=== PATIENT | male | born 1975 | race Caucasian/White ===

== ENCOUNTER 2016-04-12 12:52 | Inpatient (IN) | payer OTHER ==
[2016-04-12 14:24] VITALS: BMI 25.0
--- NOTE | 2016-04-12 16:30 | HP ---
CIWA Score - CIWA Score Nausea/Vomitin-Mild Nausea/No Vomiting Muscle Tremors: 4-Moderate,w/Arms Extend Anxiety: 4-Mod. Anxious/Guarded Agitation: 1-Slight > Activity Paroxysmal Sweats: 1-Minimal Palms Moist Orientation: 0-Oriented Tacttile Disturbances: 0-None Auditory Disturbances: 3-Moderate Harsh/Frighten Visual Disturbances: 0-None Headache: 3-Moderate CIWA-Ar Total Score: 17 Admission ROS S - HPI Chief Complaint: withdrawal sx Allergies/Adverse Reactions: Allergies Allergy/AdvReac Type Severity Reaction Status Date / Time No Known Drug Allergies Allergy Verified 04/12/16 16:24 mushrooms Allergy Severe Hives Uncoded 04/12/16 16:24 History of Present Illness: 40 years old male with long history of alcohol nicotine dependence, has constipation, asthma, and auditory halluciation, longest sobriety 4 years, is admitted to detox Exam Limitations: No Limitations - Ebola screening Have you traveled outside of the country in the last 21 days: No Have you had contact with anyone from an Ebola affected area: No Have you been sick,other than usual withdrawal symptoms: No Do you have a fever: No - Review of Systems Constitutional: Chills, Loss of Appetite, Changes in sleep, Unintentional Wgt. Loss EENT: reports: Throat Pain (sore throat) Respiratory: reports: SOB with Exertion, Productive cough (green) Cardiac: reports: Palpitations GI: reports: Constipated, Nausea, Poor Appetite, Poor Fluid Intake, Abdominal cramping : reports: No Symptoms Reported Musculoskeletal: reports: Back Pain, Joint Pain, Muscle Pain, Neck Pain Integumentary: reports: No Symptoms Reported Neuro: reports: Tremors Endocrine: reports: No Symptoms Reported Hematology: reports: No Symptoms Reported Psychiatric: reports: Judgement Intact, Orientated x3, Anxious, Depressed Other Systems: Reviewed and Negative Patient History - Patient Medical History Hx Anemia: No Hx Asthma: Yes Hx Chronic Obstructive Pulmonary Disease (COPD): No Hx Cancer: No Hx Cardiac Disorders: No Hx Congestive Heart Failure: No Hx Hypertension: No Hx Hypercholesterolemia: No Hx Pacemaker: No HX Cerebrovascular Accident: No Hx Seizures: No Hx Dementia: No Hx Diabetes: No Hx Gastrointestinal Disorders: No Hx Liver Disease: No Hx Genitourinary Disorders: No Hx Sexually Transmitted Disorders: No Hx Renal Disease (ESRD): No Hx Thyroid Disease: No Hx Human Immunodeficiency Virus (HIV): No (negative few months ago) Hx Hepatitis C: No (negative few months ago) Hx Depression: No Hx Suicide Attempt: No (denies) Hx Bipolar Disorder: No Hx Schizophrenia: Yes - Patient Surgical History Past Surgical History: No Hx Neurologic Surgery: No Hx Cataract Extraction: No Hx Cardiac Surgery: No Hx Lung Surgery: No Hx Breast Surgery: No Hx Breast Biopsy: No Hx Abdominal Surgery: Yes (umbilical hernia repaired age 4) Hx Appendectomy: No Hx Cholecystectomy: No Hx Genitourinary Surgery: No Hx Orthopedic Surgery: No Anesthesia Reaction: No - PPD History Previous Implant?: Yes Documented Results: Negative w/proof Implanted On Prior [facility] Admission?: Yes Date: 12/27/15 Results: 0 mm PPD to be Administered?: No - Smoking Cessation Smoking history: Current every day smoker Have you smoked in the past 12 months: Yes Aproximately how many cigarettes per day: 4 Cigars Per Day: 0 Hx Chewing Tobacco Use: No Initiated information on smoking cessation: Yes 'Breaking Loose' booklet given: 04/12/16 - Substance & Tx. History Hx Alcohol Use: Yes Hx Substance Use: Yes Substance Use Type: Alcohol, Cocaine, Marijuana Hx Substance Use Treatment: Yes - Substances Abused Alcohol Route: Oral Frequency: Daily Amount used: 16 oz beer x4 6 pack Age of first use: 14 Date of Last Use: 04/12/16 Alcohol-beer/rum Route: Oral Frequency: Daily Amount used: 1 case/1 pt. Age of first use: 14 Date of Last Use: 04/12/16 Family Disease History - Family Disease History Family Disease History: Respiratory: Mother (history of alcoholism), Other: Father ( 1980) Admission Physical Exam S - Vital Signs Vital Signs: Vital Signs - 24 hr 04/12/16 14:22 Temperature 98.7 F Pulse Rate 96 H Respiratory 18 Rate Blood Pressure 118/75 - Physical General Appearance: Yes: Appropriately Dressed, Mild Distress, Thin, Tremorous, Irritable, Sweating, Anxious HEENTM: Yes: Hearing grossly Normal, Normal ENT Inspection, Normocephalic, Normal Voice, Other (ichy throat) Respiratory: Yes: Chest Non-Tender, Lungs Clear, Normal Breath Sounds, No Respiratory Distress, No Accessory Muscle Use, Wheezing, Expiration (ventolin nebulizer) Neck: Yes: Supple, Trachea in good position Breast: Yes: Breasts Symetrical Cardiology: Yes: Regular Rhythm, S1, S2, Tachycardia Abdominal: Yes: Non Tender, Soft, Decreased BS (colace) Genitourinary: Yes: Within Normal Limits Back: Yes: Normal Inspection Musculoskeletal: Yes: full range of Motion, Gait Steady, Back pain, Muscle Pain Extremities: Yes: Normal Inspection, Normal Range of Motion, Non-Tender, Tremors Neurological: Yes: Fully Oriented, Alert, Motor Strength 5/5, Normal Response, Depressed Affect Integumentary: Yes: Warm, Clammy Lymphatic: Yes: Within Normal Limits - Diagnostic (1) Alcohol dependence with uncomplicated withdrawal Current Visit: Yes Status: Acute (2) Asthma Current Visit: Yes Status: Acute Qualifiers: Asthma severity: mild persistent Asthma complication type: uncomplicated Qualified Code(s): J45.30 - Mild persistent asthma, uncomplicated (3) Nicotine dependence Current Visit: Yes Status: Acute Qualifiers: Nicotine product type: cigarettes Substance use status: in withdrawal Qualified Code(s): F17.213 - Nicotine dependence, cigarettes, with withdrawal (4) Weight loss Current Visit: Yes Status: Acute (5) Constipation by delayed colonic transit Current Visit: Yes Status: Acute Comment: colace (6) Auditory hallucination Current Visit: Yes Status: Suspected Comment: psychiatrist consultation Cleared for Admission [facility] - Detox or Rehab [facility] Level of Care: Medically Managed Detox Regimen/Protocol: Librium [facility] Breath Alcohol Content Breath Alcohol Content: 0 Urine Drug Screen - Results Drug Screen Negative: No Urine Drug Screen Results: THC-Marijuana, HALLIE-Cocaine, MDMA-Ecstasy
[2016-04-12] MEDS ORDERED: MAGNESIUM CITRATE 300 ML BOTTLE PO PRN (16:40)
[2016-04-12] MEDS ORDERED: P-EPHED 60MG/TRIPROLIDI 2.5MG TABLET PO PRN (16:40)
[2016-04-12] MEDS ORDERED: MENTHOL/PHENOL 1 EACH UD MM PRN (16:40)
[2016-04-12] MEDS ORDERED: MAGNESIUM HYDROX 2400MG/30ML ORAL SUSPENSION 30 ML CUP PO PRN (16:40)
[2016-04-12] MEDS ORDERED: chlordiazePOXIDE HCL 25 MG CAPSULE PO PRN (16:40)
[2016-04-12] MEDS ORDERED: NICOTINE POLACRILEX 2 MG GUM BC PRN (16:40)
[2016-04-12] MEDS ORDERED: MAG HYDROX/AL HYDROX/SIMETH 30 ML UNIT-DOSE CUP PO PRN (16:40)
[2016-04-12] MEDS ORDERED: IBUPROFEN 400 MG TABLET (FP) PO PRN (16:40)
[2016-04-12] MEDS ORDERED: hydrOXYzine PAMOATE 50 MG CAPSULE (FP) PO PRN (16:40)
[2016-04-12] MEDS ORDERED: diphenhydrAMINE HCL 50 MG CAPSULE PO PRN (16:40)
[2016-04-12] MEDS ORDERED: LOPERAMIDE HCL 2 MG CAPSULE PO PRN (16:40)
[2016-04-12] MEDS ORDERED: guaiFENesin/D-METHORPHAN HB 10 ML UNIT-DOSE CUPS PO PRN (16:40)
[2016-04-12] MEDS ORDERED: ALBUTEROL SO4 6.7 GM HFA INHALER IH PRN (16:42)
[2016-04-12] MEDS ORDERED: ALBUTEROL SO4 2.5/IPRATROPIUM 0.5 INH SOL 3 ML VIAL.NEB. NEB PRN (16:43)
[2016-04-12] MEDS: ACETAMINOPHEN 325 MG TABLET (FP) PO PRN (18:45)
[2016-04-12] MEDS: THIAMINE HCL 100 MG TABLET (FP) PO SCH (22:55)
[2016-04-12 22:58] LABS: URINE APPEARANCE CLEAR; URINE BILIRUBIN NEGATIVE (NEGATIVE); URINE BLOOD NEGATIVE (NEGATIVE); URINE COLOR DKYELLOW; URINE GLUCOSE (UA) NEGATIVE (NEGATIVE); URINE KETONE NEGATIVE (NEGATIVE); URINE LEUK ESTERASE NEGATIVE (NEGATIVE); URINE NITRITE NEGATIVE (NEGATIVE); URINE PROTEIN NEGATIVE (NEGATIVE); URINE UROBILINOGEN 2.0 E.U/dl E.U./dl (0.2-1.0)
[2016-04-12] MEDS: chlordiazePOXIDE HCL 25 MG CAPSULE PO SCH (23:53)
[2016-04-13] MEDS: chlordiazePOXIDE HCL 25 MG CAPSULE PO SCH ×4 (05:31→23:00)
[2016-04-13] MEDS: DOCUSATE SODIUM 100 MG CAPSULE (FP) PO PRN ×2 (05:34→10:46)
--- NOTE | 2016-04-13 08:03 | CONSULT ---
[facility] Psychiatric Consult - Data Date of interview: 04/13/16 Admission source: [facility] Identifying data: This is 40 years old male with psychiatroic hospitalization history, special education history, math learniong disorder history (math), iontoxicated with Alvohol, Cocaine and Nicotine Substance Abuse History: - Smoking Cessation. Smoking history: Current every day smoker. Have you smoked in the past 12 months: Yes. Aproximately how many cigarettes per day: 4. Cigars Per Day: 0. Hx Chewing Tobacco Use: No. Initiated information on smoking cessation: Yes. 'Breaking Loose' booklet given : 04/12/16. - Substance & Tx. History. Hx Alcohol Use: Yes. Hx Substance Use : Yes. Substance Use Type: Alcohol, Cocaine, Marijuana. Hx Substance Use Treatment: Yes. - Substances Abused. Alcohol. Route: Oral. Frequency: Daily. Amount used: 16 oz beer x4 6 pack. Age of first use: 14. Date of Last Use: 04/12/16. Alcohol-beer/rum. Route: Oral. Frequency: Daily. Amount used: 1 case/1 pt. Age of first use: 14. Date of Last Use: 04/12/16 Medical History: Asthma, Weight loss history, Psychiatric History: Patient reprots mathematics learning disorder, as per computer carries Schizophrenia with most recent psychiatric admission on [facility] 5 years ago, denies suicidal history, reports no medications taking prior to admission, reportsd history hearing voices when under influence of Alcohol and Cocaine, Physical/Sexual Abuse/Trauma History: Denies Additional Comment: Observation,. Detox Unit Care Protocol Mental Status Exam - Mental Status Exam Alert and Oriented to: Person Cognitive Function: Fair Patient Appearance: Unkempt Mood: Anxious, Happy Affect: Labile Patient Behavior: Cooperative Speech Pattern: Excessive Voice Loudness: Mildly Loud Thought Process: Goal Oriented Thought Disorder: Being Controlled Hallucinations: Denies Suicidal Ideation: Denies Homicidal Ideation: Denies Insight/Judgement: Fair Sleep: Difficulty falling asleep Appetite: Weight loss Muscle strength/Tone: Normal Gait/Station: Normal Additional Comments: Observation,. Detox Unit Care Protocol Psychiatric Findings - Problem List ([place] 1, 2,3) (1) Alcohol dependence with uncomplicated withdrawal Current Visit: Yes Status: Acute (2) Nicotine dependence Current Visit: Yes Status: Acute Qualifiers: Nicotine product type: cigarettes Substance use status: in withdrawal Qualified Code(s): F17.213 - Nicotine dependence, cigarettes, with withdrawal (3) Cocaine dependence Current Visit: No Status: Chronic Qualifiers: Substance use status: uncomplicated Qualified Code(s): F14.20 - Cocaine dependence, uncomplicated (4) Learning disability Current Visit: No Status: Chronic (5) Schizophrenia Current Visit: Yes Status: Acute (6) Mental retardation Current Visit: Yes Status: Acute (7) History of learning disability Current Visit: Yes Status: Acute (8) Drug-induced mood disorder Current Visit: Yes Status: Acute - Initial Treatment Plan Initial Treatment Plan: Observation,. Detox Unit Care Protocol
[2016-04-13 10:03] LABS: MCH 30.6 pg (25.7-33.7); MCHC 33.6 g/dl (32.0-35.9); MEAN CELL VOLUME 91.2 fl (80-96); MEAN PLT VOLUME 10.2 fl (7.5-11.1); PLATELET COUNT 147 K/MM3 (134-434); RDW 13.4 % (11.9-15.9); WHITE BLOOD COUNT 5.7 K/mm3 (4.0-10.0)
[2016-04-13 10:17] LABS: ALBUMIN 3.4 g/dl (3.4-5.0); ALK PHOS 47 U/L (45-117); ANION GAP 8 (8-16); BILIRUBIN,TOTAL 0.6 mg/dL (0.2-1.0); CALCIUM 8.2 mg/dL (8.5-10.1); CO2 30 mmol/L (21-32); CREATININE 1.1 mg/dL (0.7-1.3); GLUCOSE,RANDOM 98 mg/dL (74-106); SGOT/AST 18 U/L (15-37); SGPT/ALT 19 U/L (12-78); TOT PROT 6.2 g/dl (6.4-8.2)
[2016-04-13] MEDS: PRENATAL VITAMINS W/ FOLIC ACID TABLET (FP) PO SCH (10:46)
[2016-04-13] MEDS: ACETAMINOPHEN 325 MG TABLET (FP) PO PRN (10:48)
[2016-04-13] MEDS: NICOTINE 14 MG/24 HOURS TOPICAL PATCH TD SCH (11:00)
[2016-04-13] MEDS ORDERED: CYCLOBENZAPRINE HCL 10 MG TABLET (FP) PO PRN (11:04)
--- NOTE | 2016-04-13 12:21 | EKG ---
Test Reason : Blood Pressure : / mmHG Vent. Rate : 071 BPM Atrial Rate : 071 BPM P-R Int : 162 ms QRS Dur : 064 ms QT Int : 362 ms P-R-T Axes : 035 071 041 degrees QTc Int : 393 ms NORMAL SINUS RHYTHM WITH SINUS ARRHYTHMIA SEPTAL INFARCT , AGE UNDETERMINED ABNORMAL ECG NO PREVIOUS ECGS AVAILABLE Confirmed by LINDA TAO MD ([id number]) on 04/13/2016 12:21:15 PM Referred By: Confirmed By:LINDA TAO MD
--- NOTE | 2016-04-13 14:15 | PN ---
S CIWA - CIWA Score Nausea/Vomitin Muscle Tremors: 3 Anxiety: 3 Agitation: 3 Paroxysmal Sweats: 3 Orientation: 0-Oriented Tacttile Disturbances: 2-Mild Itch/Numbness/Burn Auditory Disturbances: 0-None Visual Disturbances: 0-None Headache: 0-None Present CIWA-Ar Total Score: 16 BHS Progress Note (SOAP) Subjective: interrupted sleep, sweats , shakes Objective: 04/13/16 14:12 Vital Signs Temperature 97.9 F 04/13/16 13:46 Pulse Rate 82 04/13/16 13:46 Respiratory Rate 16 04/13/16 13:46 Blood Pressure 109/58 04/13/16 13:46 O2 Sat by Pulse Oximetry (%) Laboratory Tests 04/12/16 04/13/16 04/13/16 21:00 07:00 07:00 WBC 5.7 RBC 4.49 Hgb 13.7 Hct 40.9 MCV 91.2 MCHC 33.6 RDW 13.4 Plt Count 147 D MPV 10.2 Sodium 143 Potassium 3.8 Chloride 105 Carbon Dioxide 30 Anion Gap 8 BUN 10 D Creatinine 1.1 D Creat Clearance w eGFR > 60 Random Glucose 98 Calcium 8.2 L Total Bilirubin 0.6 D AST 18 ALT 19 D Alkaline Phosphatase 47 D Total Protein 6.2 L Albumin 3.4 Urine Color Dkyellow Urine Appearance Clear Urine pH 5.0 Ur Specific [place] 1.029 Urine Protein Negative Urine Glucose (UA) Negative Urine Ketones Negative Urine Blood Negative Urine Nitrite Negative Urine Bilirubin Negative Urine Urobilinogen 2.0 e.u/dl Ur Leukocyte Esterase Negative RPR Titer 04/13/16 07:00 WBC RBC Hgb Hct MCV MCHC RDW Plt Count MPV Sodium Potassium Chloride Carbon Dioxide Anion Gap BUN Creatinine Creat Clearance w eGFR Random Glucose Calcium Total Bilirubin AST ALT Alkaline Phosphatase Total Protein Albumin Urine Color Urine Appearance Urine pH Ur Specific [place] Urine Protein Urine Glucose (UA) Urine Ketones Urine Blood Urine Nitrite Urine Bilirubin Urine Urobilinogen Ur Leukocyte Esterase RPR Titer Nonreactive pt aox3 in nad ambulatring 04/14/16 17:53 pt aox3 ambulating Assessment: 04/13/16 14:13 withdrawl sx's 04/14/16 17:53 Plan: cont. detox inrease fluids
[2016-04-13] MEDS: THIAMINE HCL 100 MG TABLET (FP) PO SCH (23:00)
[2016-04-14] MEDS: chlordiazePOXIDE HCL 25 MG CAPSULE PO SCH ×3 (05:57→17:46)
[2016-04-14] MEDS: ACETAMINOPHEN 325 MG TABLET (FP) PO PRN ×2 (05:59→17:47)
[2016-04-14] MEDS: DOCUSATE SODIUM 100 MG CAPSULE (FP) PO PRN (11:13)
[2016-04-14] MEDS: PRENATAL VITAMINS W/ FOLIC ACID TABLET (FP) PO SCH (11:13)
[2016-04-14] MEDS: NICOTINE 14 MG/24 HOURS TOPICAL PATCH TD SCH (11:14)
--- NOTE | 2016-04-14 12:25 | PN ---
S CIWA - CIWA Score Nausea/Vomitin-No Nausea/No Vomiting Muscle Tremors: 4-Moderate,w/Arms Extend Anxiety: 3 Agitation: 3 Paroxysmal Sweats: 3 Orientation: 0-Oriented Tacttile Disturbances: 0-None Auditory Disturbances: 0-None Visual Disturbances: 0-None Headache: 0-None Present CIWA-Ar Total Score: 13 BHS Progress Note (SOAP) Subjective: irritable sweats shakes interrupted sleep Objective: 04/14/16 12:23 Vital Signs Temperature 97.9 F 04/14/16 09:22 Pulse Rate 92 H 04/14/16 09:22 Respiratory Rate 16 04/14/16 09:22 Blood Pressure 116/63 04/14/16 09:22 O2 Sat by Pulse Oximetry (%) Laboratory Tests 04/12/16 04/13/16 04/13/16 21:00 07:00 07:00 WBC 5.7 RBC 4.49 Hgb 13.7 Hct 40.9 MCV 91.2 MCHC 33.6 RDW 13.4 Plt Count 147 D MPV 10.2 Sodium 143 Potassium 3.8 Chloride 105 Carbon Dioxide 30 Anion Gap 8 BUN 10 D Creatinine 1.1 D Creat Clearance w eGFR > 60 Random Glucose 98 Calcium 8.2 L Total Bilirubin 0.6 D AST 18 ALT 19 D Alkaline Phosphatase 47 D Total Protein 6.2 L Albumin 3.4 Urine Color Dkyellow Urine Appearance Clear Urine pH 5.0 Ur Specific [place] 1.029 Urine Protein Negative Urine Glucose (UA) Negative Urine Ketones Negative Urine Blood Negative Urine Nitrite Negative Urine Bilirubin Negative Urine Urobilinogen 2.0 e.u/dl Ur Leukocyte Esterase Negative RPR Titer 04/13/16 07:00 WBC RBC Hgb Hct MCV MCHC RDW Plt Count MPV Sodium Potassium Chloride Carbon Dioxide Anion Gap BUN Creatinine Creat Clearance w eGFR Random Glucose Calcium Total Bilirubin AST ALT Alkaline Phosphatase Total Protein Albumin Urine Color Urine Appearance Urine pH Ur Specific [place] Urine Protein Urine Glucose (UA) Urine Ketones Urine Blood Urine Nitrite Urine Bilirubin Urine Urobilinogen Ur Leukocyte Esterase RPR Titer Nonreactive awake/alert ambulating no acute distress Assessment: 04/14/16 12:24 withdrawal sx Plan: continue detox increase fluids
[2016-04-14] MEDS: THIAMINE HCL 100 MG TABLET (FP) PO SCH (23:51)
[2016-04-14] MEDS: chlordiazePOXIDE 5 MG CAPSULE PO SCH (23:51)
[2016-04-15] MEDS: chlordiazePOXIDE 5 MG CAPSULE PO SCH ×3 (05:50→17:34)
[2016-04-15] MEDS: PRENATAL VITAMINS W/ FOLIC ACID TABLET (FP) PO SCH (10:35)
[2016-04-15] MEDS: NICOTINE 14 MG/24 HOURS TOPICAL PATCH TD SCH (10:36)
--- NOTE | 2016-04-15 11:00 | PN ---
BHS Progress Note (SOAP) Subjective: POOR SLEEP SHAKY ANXIOUS Objective: 04/15/16 10:59 Laboratory Tests 04/12/16 04/13/16 04/13/16 21:00 07:00 07:00 WBC 5.7 RBC 4.49 Hgb 13.7 Hct 40.9 MCV 91.2 MCHC 33.6 RDW 13.4 Plt Count 147 D MPV 10.2 Sodium 143 Potassium 3.8 Chloride 105 Carbon Dioxide 30 Anion Gap 8 BUN 10 D Creatinine 1.1 D Creat Clearance w eGFR > 60 Random Glucose 98 Calcium 8.2 L Total Bilirubin 0.6 D AST 18 ALT 19 D Alkaline Phosphatase 47 D Total Protein 6.2 L Albumin 3.4 Urine Color Dkyellow Urine Appearance Clear Urine pH 5.0 Ur Specific [place] 1.029 Urine Protein Negative Urine Glucose (UA) Negative Urine Ketones Negative Urine Blood Negative Urine Nitrite Negative Urine Bilirubin Negative Urine Urobilinogen 2.0 e.u/dl Ur Leukocyte Esterase Negative RPR Titer 04/13/16 07:00 WBC RBC Hgb Hct MCV MCHC RDW Plt Count MPV Sodium Potassium Chloride Carbon Dioxide Anion Gap BUN Creatinine Creat Clearance w eGFR Random Glucose Calcium Total Bilirubin AST ALT Alkaline Phosphatase Total Protein Albumin Urine Color Urine Appearance Urine pH Ur Specific [place] Urine Protein Urine Glucose (UA) Urine Ketones Urine Blood Urine Nitrite Urine Bilirubin Urine Urobilinogen Ur Leukocyte Esterase RPR Titer Nonreactive Vital Signs - 24 hr 04/14/16 04/14/16 04/14/16 13:59 18:25 23:05 Temperature 97.7 F 98.2 F 97.7 F Pulse Rate 98 H 81 84 Respiratory 18 18 16 Rate Blood Pressure 114/92 127/50 108/62 04/15/16 04/15/16 04/15/16 00:30 03:30 10:23 Temperature 97 F L Pulse Rate 90 Respiratory 18 18 16 Rate Blood Pressure 109/73 Assessment: 04/15/16 11:00 ONGOING WITHDRAWAL Plan: CONTINUE DETOX PROTOCOL
[2016-04-15] MEDS: chlordiazePOXIDE HCL 10 MG CAPSULE PO SCH (23:23)
[2016-04-15] MEDS: THIAMINE HCL 100 MG TABLET (FP) PO SCH (23:23)
[2016-04-16] MEDS: chlordiazePOXIDE HCL 10 MG CAPSULE PO SCH (05:28)
[2016-04-16 06:58] VITALS: TEMP 97.2
--- NOTE | 2016-04-16 09:33 | PN ---
S Progress Note (SOAP) Subjective: ALERT,NO COMPLAINT Objective: 04/16/16 09:32 Vital Signs Temperature 97.2 F L 04/16/16 06:58 Pulse Rate 80 04/16/16 06:58 Respiratory Rate 18 04/16/16 06:58 Blood Pressure 119/71 04/16/16 06:58 O2 Sat by Pulse Oximetry (%) Assessment: 04/16/16 09:32 DETOX COMPLETED,NO WITHDRAWAL SYMPTOM Plan: DISCHARGE TODAY,FOLLOW UP WITH AFTER CARE PROGRAM ARRANGEMENT
--- NOTE | 2016-04-16 09:36 | DS ---
[facility] Detox Discharge Summary Admission Date: 04/12/16 Discharge Date: 04/16/16 - History Present History: Alcohol Dependence, Cannabis Dependence, Cocaine Dependence Additional Comments: FOLLOW UP WITH AFTER CARE PROGRAM ARRANGEMENT AND PMD FOR MEDICAL PROBLEM Pertinent Past History: ASTHMA - Physical Exam Results Vital Signs: Vital Signs Temperature 97.2 F L 04/16/16 06:58 Pulse Rate 80 04/16/16 06:58 Respiratory Rate 18 04/16/16 06:58 Blood Pressure 119/71 04/16/16 06:58 O2 Sat by Pulse Oximetry (%) Pertinent Admission Physical Exam Findings: WITHDRAWAL SYMPTOM - Treatment Hospital Course: Detox Protocol Followed, Detoxed Safely, Responded well, Discharged Condition Good Patient has Accepted a Rehab Referral to: DECLINED - Medication Discharge Medications: Ambulatory Orders Albuterol Sulfate Inhaler - [Ventolin HFA Inhaler -] 2 inh PO Q4H PRN 02/12/15 - Diagnosis (1) Alcohol dependence with uncomplicated withdrawal Current Visit: Yes Status: Acute (2) Asthma Current Visit: Yes Status: Acute Qualifiers: Asthma severity: mild persistent Asthma complication type: uncomplicated Qualified Code(s): J45.30 - Mild persistent asthma, uncomplicated (3) Nicotine dependence Current Visit: Yes Status: Acute Qualifiers: Nicotine product type: cigarettes Substance use status: in withdrawal Qualified Code(s): F17.213 - Nicotine dependence, cigarettes, with withdrawal - AMA Did Patient Leave Against Medical Advice: No
[2016-04-16 09:54] VITALS: BP 100/67; PULSE 99
== END 2016-04-16 10:19 | disposition home or self-care (01) | DRG 774 ==
LOC: YASAS 12:52 → Y6N 17:44
PROVIDERS: ADMIT Internal Medicine Addiction Medicine; ATTEND Internal Medicine Addiction Medicine
PROC: HZ2ZZZZ Detoxification Services for Substance Abuse Treatment (ICD-10-PCS; principal; 2016-04-16)
DX: F10.230 Alcohol dependence with withdrawal, uncomplicated (principal); F14.20 Cocaine dependence, uncomplicated; F12.20 Cannabis dependence, uncomplicated; F17.213 Nicotine dependence, cigarettes, with withdrawal; F19.24 Other psychoactive substance dependence with psychoactive substance-induced mood disorder; J45.30 Mild persistent asthma, uncomplicated; K59.01 Slow transit constipation; F81.9 Developmental disorder of scholastic skills, unspecified; F79 Unspecified intellectual disabilities; R63.4 Abnormal weight loss; Z68.25 Body mass index [BMI] 25.0-25.9, adult
CPT/HCPCS: 36415; 80053; 81003; 85027; 86593; 93005; 93010

== ENCOUNTER 2016-07-19 16:04 | Inpatient (IN) | payer OTHER ==
[2016-07-19 19:13] VITALS: BMI 23.6
[2016-07-19] MEDS ORDERED: MAG HYDROX/AL HYDROX/SIMETH 30 ML UNIT-DOSE CUP PO PRN (19:21)
[2016-07-19] MEDS ORDERED: MENTHOL/PHENOL 1 EACH UD MM PRN (19:21)
[2016-07-19] MEDS ORDERED: NICOTINE POLACRILEX 2 MG GUM BC PRN (19:21)
[2016-07-19] MEDS ORDERED: MAGNESIUM HYDROX 2400MG/30ML ORAL SUSPENSION 30 ML CUP PO PRN (19:21)
[2016-07-19] MEDS ORDERED: chlordiazePOXIDE HCL 25 MG CAPSULE PO PRN (19:21)
[2016-07-19] MEDS ORDERED: MAGNESIUM CITRATE 300 ML BOTTLE PO PRN (19:21)
[2016-07-19] MEDS ORDERED: diphenhydrAMINE HCL 50 MG CAPSULE PO PRN (19:21)
[2016-07-19] MEDS ORDERED: ACETAMINOPHEN 325 MG TABLET (FP) PO PRN (19:21)
[2016-07-19] MEDS ORDERED: guaiFENesin/D-METHORPHAN HB 10 ML UNIT-DOSE CUPS PO PRN (19:21)
[2016-07-19] MEDS ORDERED: P-EPHED 60MG/TRIPROLIDI 2.5MG TABLET PO PRN (19:21)
[2016-07-19] MEDS ORDERED: hydrOXYzine PAMOATE 50 MG CAPSULE (FP) PO PRN (19:21)
[2016-07-19] MEDS ORDERED: IBUPROFEN 400 MG TABLET (FP) PO PRN (19:21)
[2016-07-19] MEDS ORDERED: LOPERAMIDE HCL 2 MG CAPSULE PO PRN (19:21)
--- NOTE | 2016-07-19 19:21 | HP ---
CIWA Score - CIWA Score Nausea/Vomitin-Mild Nausea/No Vomiting Muscle Tremors: 4-Moderate,w/Arms Extend Anxiety: 4-Mod. Anxious/Guarded Agitation: 4-Moderately Restless Paroxysmal Sweats: 1-Minimal Palms Moist Orientation: 1-Uncertain about Date Tacttile Disturbances: 0-None Auditory Disturbances: 0-None Visual Disturbances: 0-None Headache: 1-Very Mild CIWA-Ar Total Score: 16 Admission ROS S - HPI Chief Complaint: withdrawal sx Allergies/Adverse Reactions: Allergies Allergy/AdvReac Type Severity Reaction Status Date / Time mushroom Allergy Severe Hives Verified 04/12/16 17:12 No Known Drug Allergies Allergy Verified 04/12/16 16:24 mushrooms Allergy Severe Hives Uncoded 04/12/16 16:24 History of Present Illness: 40 years old male with long history of alcohol cocaine nicotine dependence has asthma weight loss depression is admitted to detox Exam Limitations: No Limitations - Ebola screening Have you traveled outside of the country in the last 21 days: No (N) Have you had contact with anyone from an Ebola affected area: No Have you been sick,other than usual withdrawal symptoms: No Do you have a fever: No - Review of Systems Constitutional: Chills, Loss of Appetite, Changes in sleep, Unintentional Wgt. Loss, Unexplained wgt Loss EENT: reports: No Symptoms Reported Respiratory: reports: No Symptoms reported Cardiac: reports: No Symptoms Reported GI: reports: Nausea, Poor Appetite, Poor Fluid Intake, Abdominal cramping : reports: No Symptoms Reported Musculoskeletal: reports: Back Pain, Joint Pain, Muscle Pain, Neck Pain Integumentary: reports: No Symptoms Reported Neuro: reports: Seizure (2012), Tremors Endocrine: reports: No Symptoms Reported Hematology: reports: No Symptoms Reported Psychiatric: reports: Judgement Intact, Depressed Other Systems: Reviewed and Negative Patient History - Patient Medical History Hx Anemia: No Hx Asthma: Yes Hx Chronic Obstructive Pulmonary Disease (COPD): No Hx Cancer: No Hx Cardiac Disorders: No Hx Congestive Heart Failure: No Hx Hypertension: No Hx Hypercholesterolemia: No Hx Pacemaker: No HX Cerebrovascular Accident: No Hx Seizures: No Hx Dementia: No Hx Diabetes: No Hx Gastrointestinal Disorders: No Hx Liver Disease: No Hx Genitourinary Disorders: No Hx Sexually Transmitted Disorders: No Hx Renal Disease (ESRD): No Hx Thyroid Disease: No Hx Human Immunodeficiency Virus (HIV): No (negative few months ago) Hx Hepatitis C: No (negative few months ago) Hx Depression: Yes Hx Suicide Attempt: No (denies) Hx Bipolar Disorder: No Hx Schizophrenia: No - Patient Surgical History Past Surgical History: Yes Hx Neurologic Surgery: No Hx Cataract Extraction: No Hx Cardiac Surgery: No Hx Lung Surgery: No Hx Breast Surgery: No Hx Breast Biopsy: No Hx Abdominal Surgery: Yes (umbilical hernia repaired age 4) Hx Appendectomy: No Hx Cholecystectomy: No Hx Genitourinary Surgery: No Hx Orthopedic Surgery: No Anesthesia Reaction: No - PPD History Previous Implant?: Yes Documented Results: Negative w/proof Implanted On Prior [facility] Admission?: Yes Date: 12/27/15 Results: 0 mm PPD to be Administered?: No - Smoking Cessation Smoking history: Current every day smoker Have you smoked in the past 12 months: Yes Aproximately how many cigarettes per day: 4 Cigars Per Day: 0 Hx Chewing Tobacco Use: No Initiated information on smoking cessation: Yes 'Breaking Loose' booklet given: 07/19/16 - Substance & Tx. History Hx Alcohol Use: Yes Hx Substance Use: Yes Substance Use Type: Alcohol, Cocaine Hx Substance Use Treatment: Yes - Substances Abused Alcohol Route: Oral Frequency: Daily Amount used: [id number] Age of first use: 14 Date of Last Use: 07/19/16 Family Disease History - Family Disease History Family Disease History: Respiratory: Mother (history of alcoholism), Other: Father ( 1980mva) Admission Physical Exam [facility] - Vital Signs Vital Signs: Vital Signs - 24 hr 07/19/16 19:09 Temperature 96.0 F L Pulse Rate 80 Respiratory 20 Rate Blood Pressure 111/67 - Physical General Appearance: Yes: Appropriately Dressed, Mild Distress, Thin, Tremorous, Irritable, Sweating, Anxious HEENTM: Yes: Hearing grossly Normal, Normal ENT Inspection, Normocephalic, Normal Voice Respiratory: Yes: Chest Non-Tender, No Respiratory Distress, No Accessory Muscle Use, Wheezing Neck: Yes: Supple, Trachea in good position Breast: Yes: Breasts Symetrical Cardiology: Yes: Regular Rhythm, Regular Rate, S1, S2 Abdominal: Yes: Non Tender, Soft Genitourinary: Yes: Within Normal Limits Back: Yes: Normal Inspection, Surgical Scar Musculoskeletal: Yes: full range of Motion Extremities: Yes: Normal Inspection, Normal Range of Motion, Non-Tender, Tremors Neurological: Yes: Alert, Motor Strength 5/5, Normal Response, Depressed Affect Integumentary: Yes: Warm Lymphatic: Yes: Within Normal Limits - Diagnostic (1) Alcohol dependence with uncomplicated withdrawal Current Visit: Yes Status: Acute (2) Asthma Current Visit: Yes Status: Chronic Qualifiers: Asthma severity: mild persistent Asthma complication type: uncomplicated Qualified Code(s): J45.30 - Mild persistent asthma, uncomplicated (3) Nicotine dependence Current Visit: Yes Status: Acute Qualifiers: Nicotine product type: cigarettes Substance use status: in withdrawal Qualified Code(s): F17.213 - Nicotine dependence, cigarettes, with withdrawal (4) Weight loss Current Visit: Yes Status: Acute (5) Depressed affect Current Visit: Yes Status: Suspected Cleared for Admission [facility] - Detox or Rehab [facility] Level of Care: Medically Managed Detox Regimen/Protocol: Librium S Breath Alcohol Content Breath Alcohol Content: 0 Urine Drug Screen - Results Drug Screen Negative: No Urine Drug Screen Results: HALLIE-Cocaine, AMP-Amphetamines
[2016-07-19] MEDS ORDERED: ALBUTEROL SO4 6.7 GM HFA INHALER IH PRN (19:24)
[2016-07-19 21:24] LABS: URINE APPEARANCE CLEAR; URINE BILIRUBIN NEGATIVE (NEGATIVE); URINE BLOOD NEGATIVE (NEGATIVE); URINE COLOR DKYELLOW; URINE GLUCOSE (UA) NEGATIVE (NEGATIVE); URINE KETONE TRACE (NEGATIVE); URINE LEUK ESTERASE NEGATIVE (NEGATIVE); URINE NITRITE NEGATIVE (NEGATIVE); URINE PROTEIN NEGATIVE (NEGATIVE); URINE UROBILINOGEN 2.0 E.U/dl E.U./dl (0.2-1.0)
[2016-07-19] MEDS: THIAMINE HCL 100 MG TABLET (FP) PO SCH (22:12)
[2016-07-19] MEDS: chlordiazePOXIDE HCL 25 MG CAPSULE PO SCH (22:12)
[2016-07-20] MEDS: chlordiazePOXIDE HCL 25 MG CAPSULE PO SCH ×4 (06:06→22:07)
[2016-07-20 10:11] LABS: MCH 30.7 pg (25.7-33.7); MCHC 33.6 g/dl (32.0-35.9); MEAN CELL VOLUME 91.3 fl (80-96); PLATELET COUNT 193 K/MM3 (134-434); RDW 14.1 % (11.9-15.9); WHITE BLOOD COUNT 6.4 K/mm3 (4.0-10.0)
[2016-07-20] MEDS: PRENATAL VITAMINS W/ FOLIC ACID TABLET (FP) PO SCH (10:21)
[2016-07-20] MEDS: NICOTINE 14 MG/24 HOURS TOPICAL PATCH TD SCH (10:22)
--- NOTE | 2016-07-20 10:27 | PN ---
S CIWA - CIWA Score Nausea/Vomitin Muscle Tremors: 3 Anxiety: 2 Agitation: 2 Paroxysmal Sweats: 3 Orientation: 0-Oriented Tacttile Disturbances: 1-Very Mild Itch/Numbness Auditory Disturbances: 0-None Visual Disturbances: 0-None Headache: 0-None Present CIWA-Ar Total Score: 13 S Progress Note (SOAP) Subjective: interrupted sleep, sweats, mild shakes , Objective: 07/20/16 10:25 Vital Signs Temperature 97.7 F 07/20/16 06:30 Pulse Rate 83 07/20/16 10:00 Respiratory Rate 18 07/20/16 10:00 Blood Pressure 112/72 07/20/16 10:00 O2 Sat by Pulse Oximetry (%) Laboratory Tests 07/19/16 07/20/16 07/20/16 21:00 07:00 07:00 WBC 6.4 RBC 4.44 Hgb 13.6 Hct 40.5 MCV 91.3 MCHC 33.6 RDW 14.1 Plt Count 193 D MPV 10.0 Sodium 143 Potassium 3.9 Chloride 108 H Urine Color Dkyellow Urine Appearance Clear Urine pH 5.0 Ur Specific [place] 1.025 Urine Protein Negative Urine Glucose (UA) Negative Urine Ketones Trace H Urine Blood Negative Urine Nitrite Negative Urine Bilirubin Negative Urine Urobilinogen 2.0 e.u/dl Ur Leukocyte Esterase Negative pt aox3 in nad ambulating Assessment: 07/20/16 10:26 withdrawal sx;s Plan: cont, detox increase fluids flexeril 10mg tid/prn f/up pending labs
[2016-07-20 10:38] LABS: ALBUMIN 3.1 g/dl (3.4-5.0); ALK PHOS 58 U/L (45-117); ANION GAP 6 (8-16); BILIRUBIN,TOTAL 0.3 mg/dL (0.2-1.0); CALCIUM 8.3 mg/dL (8.5-10.1); CO2 29 mmol/L (21-32); COCKROFT - GAULT 100.46; CREATININE 1.1 mg/dL (0.7-1.3); GLUCOSE,RANDOM 95 mg/dL (74-106); SGOT/AST 25 U/L (15-37); SGPT/ALT 26 U/L (12-78); TOT PROT 5.9 g/dl (6.4-8.2)
--- NOTE | 2016-07-20 11:09 | CONSULT ---
[facility] Psychiatric Consult - Data Date of interview: 07/20/16 Admission source: [facility] Identifying data: This is 40 years old male with Schzophrenia, MR, history of Psychiatric hospitalizations, intoxicated with;. Alcohol and Nicotine Substance Abuse History: - Smoking Cessation. Smoking history: Current every day smoker. Have you smoked in the past 12 months: Yes. Aproximately how many cigarettes per day: 4. Cigars Per Day: 0. Hx Chewing Tobacco Use: No. Initiated information on smoking cessation: Yes. 'Breaking Loose' booklet given : 07/19/16. - Substance & Tx. History. Hx Alcohol Use: Yes. Hx Substance Use : Yes. Substance Use Type: Alcohol, Cocaine. Hx Substance Use Treatment: Yes. - Substances Abused. Alcohol. Route: Oral. Frequency: Daily. Amount used: [id number]. Age of first use: 14. Date of Last Use: 07/19/16 Medical History: Weight loss, Asthma, Psychiatric History: Patient rteports hiostory of Paranoid Schizophrenia, as per computer there is a history od Mental Retardation, Learning disability, most resent psychiatric admission on ore then 10 years ago, reports no medications taking prior to admission, history of auditiory hallucinations Physical/Sexual Abuse/Trauma History: Denies Additional Comment: [facility] Mental Status Exam - Mental Status Exam Alert and Oriented to: Person Cognitive Function: Fair Patient Appearance: Unkempt Mood: Suspicious Affect: Constricted Patient Behavior: Cooperative Speech Pattern: Delayed Voice Loudness: Normal Thought Process: Circumstantial Thought Disorder: Being Controlled Hallucinations: Denies Suicidal Ideation: Denies Homicidal Ideation: Denies Insight/Judgement: Fair Sleep: Difficulty falling asleep Appetite: Weight loss Muscle strength/Tone: Normal Gait/Station: Normal Additional Comments: Observation. Detox [facility] Psychiatric Findings - Problem List ([place] 1, 2,3) (1) Alcohol dependence with uncomplicated withdrawal Current Visit: Yes Status: Acute (2) Nicotine dependence Current Visit: Yes Status: Acute Qualifiers: Nicotine product type: cigarettes Substance use status: in withdrawal Qualified Code(s): F17.213 - Nicotine dependence, cigarettes, with withdrawal (3) Drug-induced mood disorder Current Visit: No Status: Acute (4) History of learning disability Current Visit: No Status: Acute (5) Mental retardation Current Visit: No Status: Acute (6) Schizophrenia Current Visit: No Status: Acute (7) Cocaine dependence Current Visit: No Status: Chronic Qualifiers: Substance use status: uncomplicated Qualified Code(s): F14.20 - Cocaine dependence, uncomplicated - Initial Treatment Plan Initial Treatment Plan: Observation. Detox [facility]. Haldol 1mg po prn q4 for psychoasis and agitation
[2016-07-20] MEDS ORDERED: HALOPERIDOL 1 MG TABLET (FP) PO PRN (11:10)
--- NOTE | 2016-07-20 12:38 | EKG ---
Test Reason : Blood Pressure : / mmHG Vent. Rate : 059 BPM Atrial Rate : 059 BPM P-R Int : 164 ms QRS Dur : 088 ms QT Int : 424 ms P-R-T Axes : 031 064 032 degrees QTc Int : [address] ELEVATION, CONSIDER EARLY REPOLARIZATION, PERICARDITIS, OR INJURY ABNORMAL ECG WHEN COMPARED WITH ECG OF 12-APR-2016 18:51, CRITERIA FOR SEPTAL INFARCT ARE NO LONGER PRESENT Confirmed by LINDA TAO MD ([id number]) on 07/20/2016 12:38:45 PM Referred By: Keanu Chandra Confirmed By:LINDA TAO MD
[2016-07-20] MEDS: CYCLOBENZAPRINE HCL 10 MG TABLET (FP) PO PRN (22:06)
[2016-07-20] MEDS: THIAMINE HCL 100 MG TABLET (FP) PO SCH (22:06)
[2016-07-21] MEDS: chlordiazePOXIDE HCL 25 MG CAPSULE PO SCH ×3 (05:51→17:36)
[2016-07-21] MEDS: PRENATAL VITAMINS W/ FOLIC ACID TABLET (FP) PO SCH (10:03)
[2016-07-21] MEDS: CYCLOBENZAPRINE HCL 10 MG TABLET (FP) PO PRN ×2 (10:03→22:37)
[2016-07-21] MEDS: NICOTINE 14 MG/24 HOURS TOPICAL PATCH TD SCH (10:04)
--- NOTE | 2016-07-21 10:12 | PN ---
[facility] CIWA - CIWA Score Nausea/Vomitin-No Nausea/No Vomiting Muscle Tremors: 3 Anxiety: 2 Agitation: 3 Paroxysmal Sweats: 3 Orientation: 0-Oriented Tacttile Disturbances: 0-None Auditory Disturbances: 0-None Visual Disturbances: 0-None Headache: 0-None Present CIWA-Ar Total Score: 11 S Progress Note (SOAP) Subjective: sweats agitation interrupted sleep Objective: 07/21/16 10:11 Vital Signs Temperature 98.1 F 07/21/16 09:40 Pulse Rate 79 07/21/16 09:40 Respiratory Rate 16 07/21/16 09:40 Blood Pressure 119/70 07/21/16 09:40 O2 Sat by Pulse Oximetry (%) Laboratory Tests 07/19/16 07/20/16 07/20/16 21:00 07:00 07:00 WBC 6.4 RBC 4.44 Hgb 13.6 Hct 40.5 MCV 91.3 MCHC 33.6 RDW 14.1 Plt Count 193 D MPV 10.0 Sodium 143 Potassium 3.9 Chloride 108 H Carbon Dioxide 29 Anion Gap 6 L BUN 21 H D Creatinine 1.1 Creat Clearance w eGFR > 60 Random Glucose 95 Calcium 8.3 L Total Bilirubin 0.3 D AST 25 D ALT 26 D Alkaline Phosphatase 58 D Total Protein 5.9 L Albumin 3.1 L Urine Color Dkyellow Urine Appearance Clear Urine pH 5.0 Ur Specific [place] 1.025 Urine Protein Negative Urine Glucose (UA) Negative Urine Ketones Trace H Urine Blood Negative Urine Nitrite Negative Urine Bilirubin Negative Urine Urobilinogen 2.0 e.u/dl Ur Leukocyte Esterase Negative RPR Titer 07/20/16 07:00 WBC RBC Hgb Hct MCV MCHC RDW Plt Count MPV Sodium Potassium Chloride Carbon Dioxide Anion Gap BUN Creatinine Creat Clearance w eGFR Random Glucose Calcium Total Bilirubin AST ALT Alkaline Phosphatase Total Protein Albumin Urine Color Urine Appearance Urine pH Ur Specific [place] Urine Protein Urine Glucose (UA) Urine Ketones Urine Blood Urine Nitrite Urine Bilirubin Urine Urobilinogen Ur Leukocyte Esterase RPR Titer Nonreactive awake/alert ambulating no acute distress Assessment: 07/21/16 10:12 withdrawal sx Plan: continue detox increase fluids
[2016-07-21] MEDS: THIAMINE HCL 100 MG TABLET (FP) PO SCH (22:37)
[2016-07-21] MEDS: chlordiazePOXIDE 5 MG CAPSULE PO SCH (22:38)
[2016-07-22] MEDS: chlordiazePOXIDE 5 MG CAPSULE PO SCH (06:07)
[2016-07-22 06:46] VITALS: TEMP 97.7
[2016-07-22 10:37] VITALS: BP 93/64; PULSE 104
--- NOTE | 2016-07-22 11:17 | DS ---
[facility] Detox Discharge Summary Admission Date: 07/19/16 Discharge Date: 07/22/16 - History Present History: Alcohol Dependence Additional Comments: ADVISED PATIENT TO FOLLOW-UP WITH [facility] FOR [facility]AL MEDICAL ASSESSMENT. Pertinent Past History: Asthma, Depression. - Physical Exam Results Vital Signs: Vital Signs Temperature 97.7 F 07/22/16 10:00 Pulse Rate 104 H 07/22/16 10:00 Respiratory Rate 16 07/22/16 10:00 Blood Pressure 93/64 07/22/16 10:00 O2 Sat by Pulse Oximetry (%) Pertinent Admission Physical Exam Findings: WITHDRAWAL SYMPTOMS. Laboratory Tests 07/19/16 07/20/16 07/20/16 21:00 07:00 07:00 WBC 6.4 RBC 4.44 Hgb 13.6 Hct 40.5 MCV 91.3 MCHC 33.6 RDW 14.1 Plt Count 193 D MPV 10.0 Sodium 143 Potassium 3.9 Chloride 108 H Carbon Dioxide 29 Anion Gap 6 L BUN 21 H D Creatinine 1.1 Creat Clearance w eGFR > 60 Random Glucose 95 Calcium 8.3 L Total Bilirubin 0.3 D AST 25 D ALT 26 D Alkaline Phosphatase 58 D Total Protein 5.9 L Albumin 3.1 L Urine Color Dkyellow Urine Appearance Clear Urine pH 5.0 Ur Specific [place] 1.025 Urine Protein Negative Urine Glucose (UA) Negative Urine Ketones Trace H Urine Blood Negative Urine Nitrite Negative Urine Bilirubin Negative Urine Urobilinogen 2.0 e.u/dl Ur Leukocyte Esterase Negative RPR Titer 07/20/16 07:00 WBC RBC Hgb Hct MCV MCHC RDW Plt Count MPV Sodium Potassium Chloride Carbon Dioxide Anion Gap BUN Creatinine Creat Clearance w eGFR Random Glucose Calcium Total Bilirubin AST ALT Alkaline Phosphatase Total Protein Albumin Urine Color Urine Appearance Urine pH Ur Specific [place] Urine Protein Urine Glucose (UA) Urine Ketones Urine Blood Urine Nitrite Urine Bilirubin Urine Urobilinogen Ur Leukocyte Esterase RPR Titer Nonreactive LABS NOTED. - Treatment Hospital Course: Detoxed Safely - Medication Discharge Medications: Ambulatory Orders Albuterol Sulfate Inhaler - [Ventolin HFA Inhaler -] 2 inh IH Q4H PRN #1 inhaler 04/16/16 - Diagnosis (1) Alcohol dependence with uncomplicated withdrawal Current Visit: Yes Status: Acute (2) Nicotine dependence Current Visit: Yes Status: Chronic Qualifiers: Nicotine product type: cigarettes Substance use status: in withdrawal Qualified Code(s): F17.213 - Nicotine dependence, cigarettes, with withdrawal (3) Asthma Current Visit: Yes Status: Chronic Qualifiers: Asthma severity: mild persistent Asthma complication type: uncomplicated Qualified Code(s): J45.30 - Mild persistent asthma, uncomplicated (4) Depressed affect Current Visit: Yes Status: Suspected (5) Drug-induced mood disorder Current Visit: Yes Status: Acute (6) History of learning disability Current Visit: No Status: Chronic (7) Schizophrenia Current Visit: Yes Status: Chronic Qualifiers: Schizophrenia type: unspecified Qualified Code(s): F20.9 - Schizophrenia, unspecified - AMA Did Patient Leave Against Medical Advice: Yes (PATIENT DID NOT WANT TO STAY TO COMPLETE DETOX REGIMEN.)
[2016-07-22] MEDS ORDERED: chlordiazePOXIDE HCL 10 MG CAPSULE PO SCH (23:00)
== END 2016-07-22 10:15 | disposition left against medical advice (07) | DRG 770 ==
LOC: YASAS 16:04 → Y6N 19:59
PROVIDERS: ADMIT Internal Medicine Addiction Medicine; ATTEND Internal Medicine Addiction Medicine
PROC: HZ2ZZZZ Detoxification Services for Substance Abuse Treatment (ICD-10-PCS; principal; 2016-07-19)
DX: F10.230 Alcohol dependence with withdrawal, uncomplicated (principal); F17.213 Nicotine dependence, cigarettes, with withdrawal; F19.24 Other psychoactive substance dependence with psychoactive substance-induced mood disorder; F32.9 Major depressive disorder, single episode, unspecified; F20.9 Schizophrenia, unspecified; J45.30 Mild persistent asthma, uncomplicated; F81.9 Developmental disorder of scholastic skills, unspecified; F79 Unspecified intellectual disabilities; Z87.898 Personal history of other specified conditions
CPT/HCPCS: 36415; 80053; 81003; 85027; 86593; 93005; 93010

== ENCOUNTER 2018-06-11 11:59 | Inpatient (IN) | payer OTHER ==
[2018-06-11 13:03] VITALS: BMI 31.4
--- NOTE | 2018-06-11 14:01 | HP ---
CIWA Score Nausea/Vomitin-No Nausea/No Vomiting Muscle Tremors: 1-None Visible, but [place] Anxiety: 3 Agitation: 0-Normal Activity Paroxysmal Sweats: 1-Minimal Palms Moist Orientation: 0-Oriented Tacttile Disturbances: 2-Mild Itch/Numbness/Burn (b/l lower extremiteis) Auditory Disturbances: 1-Very Mild Visual Disturbances: 0-None Headache: 4-Moderately Severe (8/10) CIWA-Ar Total Score: 12 - [facility]: Admission for Medically Managed Detox: Requires at least one of the followin. CIWA greater than 12 2. Seizures within the past 24 hours 3. Delirium tremens within the past 24 hours 4. Hallucinations within the past 24 hours 5. Acute intervention needed for co occurring medical disorder 6. Acute intervention needed for co occurring psychiatric disorder 7. Severe withdrawal that cannot be handled at a lower level of care (continued vomiting, continued diarrhea, abnormal vital signs) requiring intravenous medication and/or fluids 8. Patient presents the following: CIWA greater than 12 Admission Criteria Met: Admission criteria met Admission [facility] Chief Complaint: " detox" Allergies/Adverse Reactions: Allergies Allergy/AdvReac Type Severity Reaction Status Date / Time No Known Drug Allergies Allergy Verified 06/11/18 12:53 History of Present Illness: 42 yo male, homeless, with hx of nicotine, alcohol, heroin (nasal), and crack / cocaine dependence is here seeking detox. Utox positive for THC and HALLIE, HARVEY = 0.00. Reports auditory hallucinations while intoxicated, denies and auditory hallucinations at this time. PMHX: asthma, right OA . Psych: anxiety, reports hx of treatment with depakote 500 mg BID. Reports was incarcerated for two years and was released 05/10/18, relapsed 05/12/18. Denies suicidal / homicidal ideation or suicide attempts. Reports remote hx of syncope three years ago. Exam Limitations: No Limitations - Ebola screening Have you traveled outside of the country in the last 21 days: No Have you had contact with anyone from an Ebola affected area: No - Review of Systems Constitutional: Chills, Loss of Appetite, Unintentional Wgt. Loss (20 lbs) EENT: reports: No Symptoms Reported Respiratory: reports: No Symptoms reported Cardiac: reports: No Symptoms Reported GI: reports: Poor Appetite, Poor Fluid Intake, Abdominal cramping : reports: No Symptoms Reported Musculoskeletal: reports: Back Pain (low back), Joint Pain (left hip pain), Other (b/l foot pain) Integumentary: reports: Dryness Neuro: reports: Headache, Numbness (b/t LE) Endocrine: reports: Increased Thirst Hematology: reports: No Symptoms Reported Psychiatric: reports: Orientated x3, Anxious Other Systems: Reviewed and Negative Patient History - Patient Medical History Hx Anemia: No Hx Asthma: Yes Hx Chronic Obstructive Pulmonary Disease (COPD): No Hx Cancer: No Hx Cardiac Disorders: No Hx Congestive Heart Failure: No Hx Hypertension: Yes Hx Hypercholesterolemia: No Hx Pacemaker: No HX Cerebrovascular Accident: No Hx Seizures: No Hx Dementia: No Hx Diabetes: No Hx Gastrointestinal Disorders: No Hx Liver Disease: No Hx Genitourinary Disorders: No Hx Sexually Transmitted Disorders: No Hx Renal Disease (ESRD): No Hx Thyroid Disease: No Hx Human Immunodeficiency Virus (HIV): No (negative few months ago) Hx Hepatitis C: No (negative few months ago) Hx Depression: Yes Hx Suicide Attempt: No (denies) Hx Bipolar Disorder: No Hx Schizophrenia: No - Patient Surgical History Past Surgical History: Yes Hx Neurologic Surgery: No Hx Cataract Extraction: No Hx Cardiac Surgery: No Hx Lung Surgery: No Hx Breast Surgery: No Hx Breast Biopsy: No Hx Abdominal Surgery: No Hx Appendectomy: No Hx Cholecystectomy: No Hx Genitourinary Surgery: No Hx Orthopedic Surgery: No Anesthesia Reaction: No - PPD History Previous Implant?: No Documented Results: Negative w/proof Date: 12/27/15 Results: 0 mm PPD to be Administered?: Yes - Smoking Cessation Smoking history: Never smoked Have you smoked in the past 12 months: Yes Aproximately how many cigarettes per day: 4 Cigars Per Day: 0 Hx Chewing Tobacco Use: No Initiated information on smoking cessation: Yes 'Breaking Loose' booklet given: 06/11/18 - Substance & Tx. History Hx Alcohol Use: Yes Hx Substance Use: Yes Substance Use Type: Alcohol, Cocaine, Heroin, Marijuana Hx Substance Use Treatment: Yes (Detox [facility] June 2016) - Substances abused Heroin Substance route: Inhalation Frequency: 3-6 times per week Amount used: 1 bundle Age of first use: 32 Date of last use: 06/10/18 Alcohol Substance route: Oral Frequency: Daily Amount used: 3 six pk beers ( 16 oz cans ), 6 pt. liquor, Age of first use: 14 Date of last use: 06/11/18 Cocaine Substance route: Inhalation Frequency: Daily Amount used: 1 bundle Age of first use: 28 Date of last use: 06/11/18 Crack Substance route: Inhalation Frequency: Daily Amount used: 1 bundle Age of first use: 28 Date of last use: 06/11/18 Family Disease History - Family Disease History Family Disease History: Respiratory: Mother (history of alcoholism), Other: Father ( 1980mva) Admission Physical Exam [facility] - Vital Signs Vital Signs: Vital Signs - 24 hr 06/11/18 12:57 Temperature 98 F Pulse Rate 75 Respiratory 18 Rate Blood Pressure 133/79 - Physical General Appearance: Yes: Nourished, Appropriately Dressed, Mild Distress, Sweating, Anxious HEENTM: Yes: Hearing grossly Normal, Normal ENT Inspection, Normocephalic, Normal Voice, VENESSA, Pharynx Normal, Tm's normal, Other (+dry mucous membranes) Respiratory: Yes: Chest Non-Tender, Lungs Clear, Normal Breath Sounds, No Respiratory Distress, No Accessory Muscle Use Neck: Yes: Within Normal Limits Breast: Yes: Breast Exam Deferred Cardiology: Yes: Regular Rhythm, Regular Rate Abdominal: Yes: Normal Bowel Sounds, Non Tender, Flat, Soft Genitourinary: Yes: Within Normal Limits Back: Yes: Normal Inspection Musculoskeletal: Yes: full range of Motion, Gait Steady, Pelvis Stable, Back pain Extremities: Yes: Normal Capillary Refill, Normal Inspection, Normal Range of Motion, Other (palmar erythema b/l) Neurological: Yes: ell tutor II-XII NML intact, Fully Oriented, Alert, Motor Strength 5/5, Depressed Affect Integumentary: Yes: Normal Color, Dry, Warm Lymphatic: Yes: Within Normal Limits - Diagnostic (1) Cannabis dependence Current Visit: Yes Status: Acute (2) Back pain Current Visit: Yes Status: Acute (3) Alcohol dependence with uncomplicated withdrawal Current Visit: No Status: Acute (4) Weight loss Current Visit: No Status: Acute (5) Asthma Current Visit: No Status: Chronic Qualifiers: Asthma severity: mild persistent Asthma complication type: uncomplicated (6) Cocaine dependence Current Visit: No Status: Chronic Qualifiers: Substance use status: uncomplicated Qualified Code(s): F14.20 - Cocaine dependence, uncomplicated (7) History of learning disability Current Visit: No Status: Chronic (8) Nicotine dependence Current Visit: No Status: Chronic Qualifiers: Nicotine product type: cigarettes Substance use status: in withdrawal Qualified Code(s): F17.213 - Nicotine dependence, cigarettes, with withdrawal Cleared for Admission [facility] - Detox or Rehab [facility] Level of Care: Medically Managed Detox Regimen/Protocol: Librium Breathalyzer - Breathalyzer Breathalyzer: 0 Urine Drug Screen - Test Device Lot number: [id number] Expiration date: 01/27/20 - Control Is test valid?: Yes - Results Drug screen NEGATIVE: No Urine drug screen results: THC-Marijuana, HALLIE-Cocaine Inpatient Rehab Admission - Rehab Decision to Admit Inpatient rehab admission?: No
[2018-06-11] MEDS ORDERED: MELATONIN 5 MG TABLETS PO PRN (14:09)
[2018-06-11] MEDS ORDERED: ACETAMINOPHEN 325 MG TABLET (FP) PO PRN ×2 (14:09)
[2018-06-11] MEDS ORDERED: MENTHOL/PHENOL 1 EACH UD MM PRN (14:09)
[2018-06-11] MEDS ORDERED: IBUPROFEN 400 MG TABLET (FP) PO PRN (14:09)
[2018-06-11] MEDS ORDERED: BISMUTH SUBSALICYLATE 262 MG/15 ML BTL PO PRN (14:09)
[2018-06-11] MEDS ORDERED: chlordiazePOXIDE HCL 25 MG CAPSULE PO PRN (14:09)
[2018-06-11] MEDS ORDERED: hydrOXYzine PAMOATE 50 MG CAPSULE (FP) PO PRN (14:09)
[2018-06-11] MEDS ORDERED: MAGNESIUM HYDROX 2400MG/30ML ORAL SUSPENSION 30 ML CUP PO PRN (14:09)
[2018-06-11] MEDS ORDERED: MAG HYDROX/AL HYDROX/SIMETH 30 ML UNIT-DOSE CUP PO PRN (14:09)
[2018-06-11] MEDS ORDERED: NICOTINE POLACRILEX 2 MG GUM BUC PRN (14:09)
[2018-06-11] MEDS ORDERED: METHOCARBAMOL 500 MG TABLET PO PRN (14:09)
[2018-06-11] MEDS ORDERED: MAGNESIUM CITRATE 300 ML BOTTLE PO PRN (14:09)
[2018-06-11 16:47] LABS: HEMATOCRIT 40.6 % (35.4-49); HEMOGLOBIN 13.8 GM/dL (11.7-16.9); MEAN PLT VOLUME 9.8 fl (7.5-11.1); PLATELET COUNT 191 K/MM3 (134-434); RBC 4.46 M/mm3 (4.00-5.60); RDW 14.2 % (11.9-15.9); WHITE BLOOD COUNT 5.8 K/mm3 (4.0-10.0)
[2018-06-11 16:59] LABS: ALBUMIN 3.4 g/dl (3.4-5.0); ALK PHOS 65 U/L (45-117); ANION GAP 2 MMOL/L (8-16); BILIRUBIN,TOTAL 0.3 mg/dL (0.2-1); BLOOD UREA NITROGEN 23 mg/dL (7-18); CALCIUM 8.5 mg/dL (8.5-10.1); CHLORIDE 106 mmol/L (98-107); CO2 29 mmol/L (21-32); CREATININE 1.3 mg/dL (0.55-1.3); GLUCOSE,RANDOM 95 mg/dL (74-106); POTASSIUM 4.1 mmol/L (3.5-5.1); SGOT/AST 32 U/L (15-37); SGPT/ALT 30 U/L (13-61); SODIUM 137 mmol/L (136-145); TOT PROT 6.9 g/dl (6.4-8.2)
[2018-06-11] MEDS: chlordiazePOXIDE HCL 25 MG CAPSULE PO SCH ×2 (17:10→22:15)
[2018-06-11] MEDS: THIAMINE HCL 100 MG TABLET (FP) PO SCH (22:16)
[2018-06-11] MEDS: TOLNAFTATE 1% CREAM 15 GM TUBE TP SCH (22:32)
[2018-06-12] MEDS: chlordiazePOXIDE HCL 25 MG CAPSULE PO SCH ×4 (05:12→22:07)
[2018-06-12] MEDS: PRENATAL VITAMINS W/ FOLIC ACID TABLET (FP) PO SCH (10:14)
[2018-06-12] MEDS: TOLNAFTATE 1% CREAM 15 GM TUBE TP SCH ×2 (10:14→22:07)
[2018-06-12] MEDS: NICOTINE 14 MG/24 HOURS TOPICAL PATCH TD SCH (10:14)
--- NOTE | 2018-06-12 10:54 | EKG ---
Test Reason : Blood Pressure : / mmHG Vent. Rate : 062 BPM Atrial Rate : 062 BPM P-R Int : 180 ms QRS Dur : 086 ms QT Int : 440 ms P-R-T Axes : 046 050 033 degrees QTc Int : 446 ms NORMAL SINUS RHYTHM WITH SINUS ARRHYTHMIA ST ELEVATION, CONSIDER EARLY REPOLARIZATION BORDERLINE ECG WHEN COMPARED WITH ECG OF 19-JUL-2016 20:17, NONSPECIFIC T WAVE ABNORMALITY NO LONGER EVIDENT IN ANTERIOR LEADS Confirmed by MD Bret, Nick ([id number]) on 06/12/2018 10:54:25 AM Referred By: Confirmed By:Nick Queen MD
--- NOTE | 2018-06-12 11:28 | PN ---
[facility] CIWA - CIWA Score Nausea/Vomitin-Mild Nausea/No Vomiting Muscle Tremors: 2 Anxiety: 1-Mildly Anxious Agitation: 2 Paroxysmal Sweats: 1-Minimal Palms Moist Orientation: 2-Disoriented Date<2 days Tacttile Disturbances: 0-None Auditory Disturbances: 0-None Visual Disturbances: 0-None Headache: 1-Very Mild CIWA-Ar Total Score: 10 S Progress Note (SOAP) Subjective: feeling better today doing well with librium protocol Objective: 06/12/18 11:32 Vital Signs Temperature 97.2 F L 06/12/18 09:06 Pulse Rate 88 06/12/18 09:06 Respiratory Rate 16 06/12/18 09:06 Blood Pressure 101/71 06/12/18 09:06 O2 Sat by Pulse Oximetry (%) Laboratory Last Values WBC 5.8 K/mm3 (4.0-10.0) 06/11/18 14:30 RBC 4.46 M/mm3 (4.00-5.60) 06/11/18 14:30 Hgb 13.8 GM/dL (11.7-16.9) 06/11/18 14:30 Hct 40.6 % (35.4-49) 06/11/18 14:30 MCV 91.0 fl (80-96) 06/11/18 14:30 MCH 31.0 pg (25.7-33.7) 06/11/18 14:30 MCHC 34.0 g/dl (32.0-35.9) 06/11/18 14:30 RDW 14.2 % (11.9-15.9) 06/11/18 14:30 Plt Count 191 K/MM3 (134-434) 06/11/18 14:30 MPV 9.8 fl (7.5-11.1) 06/11/18 14:30 Sodium 137 mmol/L (136-145) 06/11/18 14:30 Potassium 4.1 mmol/L (3.5-5.1) 06/11/18 14:30 Chloride 106 mmol/L (98-107) 06/11/18 14:30 Carbon Dioxide 29 mmol/L (21-32) 06/11/18 14:30 Anion Gap 2 MMOL/L (8-16) L 06/11/18 14:30 BUN 23 mg/dL (7-18) H 06/11/18 14:30 Creatinine 1.3 mg/dL (0.55-1.3) 06/11/18 14:30 Creat Clearance w eGFR 59.97 (>60) 06/11/18 14:30 Random Glucose 95 mg/dL (74-106) 06/11/18 14:30 Calcium 8.5 mg/dL (8.5-10.1) 06/11/18 14:30 Total Bilirubin 0.3 mg/dL (0.2-1) 06/11/18 14:30 AST 32 U/L (15-37) 06/11/18 14:30 ALT 30 U/L (13-61) 06/11/18 14:30 Alkaline Phosphatase 65 U/L (45-117) 06/11/18 14:30 Total Protein 6.9 g/dl (6.4-8.2) 06/11/18 14:30 Albumin 3.4 g/dl (3.4-5.0) 06/11/18 14:30 RPR Titer Nonreactive (NONREACTIVE) 06/11/18 14:30 HIV 1&2 Antibody Screen Negative 06/11/18 14:30 HIV P24 Antigen Negative 06/11/18 14:30 lab noted Assessment: 06/12/18 11:33 alcohol withdrawal sx Plan: continue detox
--- NOTE | 2018-06-12 13:11 | CONSULT ---
[facility] Psychiatric Consult - Data Date of interview: 06/12/18 ([facility]) Admission source: [facility] Identifying data: This is one of multiple psychiatric hospitalizations for this 42 y/o male self-referred for detoxification (alcohol,cocaine/crack). Examined at [address] [place] [address]. Patient is single, a father of three, homeless, unemployed and supported on SSI benefits. Substance Abuse History: Smoking history: Never smoked. Have you smoked in the past 12 months: Yes. Aproximately how many cigarettes per day: 4. Cigars Per Day: 0. Hx Chewing Tobacco Use: No. Initiated information on smoking cessation : Yes. 'Breaking Loose' booklet given: 06/11/18. - Substance & Tx. History. Hx Alcohol Use: Yes. Hx Substance Use: Yes. Substance Use Type: Alcohol, Cocaine, Heroin, Marijuana. Hx Substance Use Treatment: Yes (Detox [facility] June 2016). - Substances abused. Heroin. Substance route: Inhalation. Frequency: 3-6 times per week. Amount used: 1 bundle. Age of first use: 32. Date of last use: 06/10/18. Alcohol. Substance route: Oral. Frequency: Daily. Amount used: 3 six pk beers ( 16 oz cans ), 6 pt. liquor,. Age of first use: 14. Date of last use: 06/11/18. Cocaine. Substance route: Inhalation. Frequency: Daily. Amount used: 1 bundle. Age of first use: 28. Date of last use: 06/11/18. Crack. Substance route: Inhalation. Frequency : Daily. Amount used: 1 bundle. Age of first use: 28. Date of last use: 06/11 Medical History: Remarkable for bronchial asthma, osteoarthritis, chronic lumbar + left hip pain. No known allergies. Psychiatric History: Patient reports a distant history of one psychiatric hospitalization (10 years ago) at [facility]. Multiple psychiatric diagnoses appear on record : OCD, Schizophrenia, Learning Disorder, Bipolar Disorder. Mr Crum indicates past treatment with valproate. Chronically non- adherent to OPD care. No history of suicide attempts. Physical/Sexual Abuse/Trauma History: Patient denies. Additional Comment: Urine drug screen results: THC-Marijuana, HALLIE-Cocaine. Noted. Mental Status Exam - Mental Status Exam Alert and Oriented to: Time, Place, Person Cognitive Function: Good Patient Appearance: Well Groomed Mood: Withdrawn Affect: Appropriate, Normal Range Patient Behavior: Fatigued, Cooperative Speech Pattern: Clear Voice Loudness: Normal Thought Process: Goal Oriented Thought Disorder: Not Present Hallucinations: Denies Suicidal Ideation: Denies Homicidal Ideation: Denies Insight/Judgement: Poor Sleep: Well Appetite: Good Muscle strength/Tone: Normal Gait/Station: Other (not observed. Did not leave bed for interview) Psychiatric Findings - Problem List ([place] 1, 2,3) (1) Alcohol dependence with uncomplicated withdrawal Current Visit: Yes Status: Acute (2) Cannabis dependence Current Visit: Yes Status: Chronic (3) Cocaine dependence Current Visit: Yes Status: Chronic Qualifiers: Substance use status: uncomplicated Qualified Code(s): F14.20 - Cocaine dependence, uncomplicated (4) Nicotine dependence Current Visit: Yes Status: Chronic Qualifiers: Nicotine product type: cigarettes Substance use status: in withdrawal Qualified Code(s): F17.213 - Nicotine dependence, cigarettes, with withdrawal (5) Drug-induced mood disorder Current Visit: Yes Status: Chronic (6) Non-compliance Current Visit: Yes Status: Chronic (7) History of learning disability Current Visit: No Status: Chronic Comment: As per records. (8) Schizophrenia Current Visit: No Status: Chronic Qualifiers: Schizophrenia type: unspecified Qualified Code(s): F20.9 - Schizophrenia, unspecified Comment: As per records. - Initial Treatment Plan Initial Treatment Plan: Records revisited. Psychoeducation. Sleep hygiene. Detoxification in progress. Support. AA meetings. Rehabilitation recommended. Groups. Relapse prevention (MAT choices) : discussed with patient. Not receptive. Observation.
[2018-06-12] MEDS: THIAMINE HCL 100 MG TABLET (FP) PO SCH (22:07)
[2018-06-13] MEDS: chlordiazePOXIDE HCL 25 MG CAPSULE PO SCH ×2 (06:04→10:02)
[2018-06-13] MEDS: NICOTINE 14 MG/24 HOURS TOPICAL PATCH TD SCH (10:02)
[2018-06-13] MEDS: TOLNAFTATE 1% CREAM 15 GM TUBE TP SCH ×2 (10:02→23:38)
[2018-06-13] MEDS: PRENATAL VITAMINS W/ FOLIC ACID TABLET (FP) PO SCH (10:02)
--- NOTE | 2018-06-13 10:47 | PN ---
S CIWA - CIWA Score Nausea/Vomitin-No Nausea/No Vomiting Muscle Tremors: 3 Anxiety: 2 Agitation: 1-Slight > Activity Paroxysmal Sweats: 1-Minimal Palms Moist Orientation: 0-Oriented Tacttile Disturbances: 0-None Auditory Disturbances: 0-None Visual Disturbances: 0-None Headache: 1-Very Mild CIWA-Ar Total Score: 8 S Progress Note (SOAP) Subjective: patient reported that he was taking depakote 500 mg po bid by history last dose "months" ago feeling down today denies suicidal ideation lack of energy to do "stuff" Objective: 06/13/18 10:50 Vital Signs Temperature 98.1 F 06/13/18 09:14 Pulse Rate 83 06/13/18 09:14 Respiratory Rate 18 06/13/18 09:14 Blood Pressure 104/62 06/13/18 09:14 O2 Sat by Pulse Oximetry (%) Laboratory Last Values WBC 5.8 K/mm3 (4.0-10.0) 06/11/18 14:30 RBC 4.46 M/mm3 (4.00-5.60) 06/11/18 14:30 Hgb 13.8 GM/dL (11.7-16.9) 06/11/18 14:30 Hct 40.6 % (35.4-49) 06/11/18 14:30 MCV 91.0 fl (80-96) 06/11/18 14:30 MCH 31.0 pg (25.7-33.7) 06/11/18 14:30 MCHC 34.0 g/dl (32.0-35.9) 06/11/18 14:30 RDW 14.2 % (11.9-15.9) 06/11/18 14:30 Plt Count 191 K/MM3 (134-434) 06/11/18 14:30 MPV 9.8 fl (7.5-11.1) 06/11/18 14:30 Sodium 137 mmol/L (136-145) 06/11/18 14:30 Potassium 4.1 mmol/L (3.5-5.1) 06/11/18 14:30 Chloride 106 mmol/L (98-107) 06/11/18 14:30 Carbon Dioxide 29 mmol/L (21-32) 06/11/18 14:30 Anion Gap 2 MMOL/L (8-16) L 06/11/18 14:30 BUN 23 mg/dL (7-18) H 06/11/18 14:30 Creatinine 1.3 mg/dL (0.55-1.3) 06/11/18 14:30 Creat Clearance w eGFR 59.97 (>60) 06/11/18 14:30 Random Glucose 95 mg/dL (74-106) 06/11/18 14:30 Calcium 8.5 mg/dL (8.5-10.1) 06/11/18 14:30 Total Bilirubin 0.3 mg/dL (0.2-1) 06/11/18 14:30 AST 32 U/L (15-37) 06/11/18 14:30 ALT 30 U/L (13-61) 06/11/18 14:30 Alkaline Phosphatase 65 U/L (45-117) 06/11/18 14:30 Total Protein 6.9 g/dl (6.4-8.2) 06/11/18 14:30 Albumin 3.4 g/dl (3.4-5.0) 06/11/18 14:30 RPR Titer Nonreactive (NONREACTIVE) 06/11/18 14:30 HIV 1&2 Antibody Screen Negative 06/11/18 14:30 HIV P24 Antigen Negative 06/11/18 14:30 lab noted Assessment: 06/13/18 10:51 alcohol withdrawal sx Plan: continue detox
[2018-06-13] MEDS ORDERED: chlordiazePOXIDE HCL 10 MG CAPSULE PO PRN (17:00)
[2018-06-13] MEDS: chlordiazePOXIDE HCL 10 MG CAPSULE PO SCH ×2 (17:38→22:15)
[2018-06-13] MEDS: THIAMINE HCL 100 MG TABLET (FP) PO SCH (22:14)
[2018-06-14] MEDS: chlordiazePOXIDE HCL 10 MG CAPSULE PO SCH ×2 (05:24→10:26)
[2018-06-14 09:44] VITALS: BP 112/69; PULSE 93; TEMP 96.2
[2018-06-14] MEDS: PRENATAL VITAMINS W/ FOLIC ACID TABLET (FP) PO SCH (10:26)
[2018-06-14] MEDS: TOLNAFTATE 1% CREAM 15 GM TUBE TP SCH (10:27)
[2018-06-14] MEDS: NICOTINE 14 MG/24 HOURS TOPICAL PATCH TD SCH (10:27)
--- NOTE | 2018-06-14 11:23 | DS ---
[facility] Detox Discharge Summary Admission Date: 06/11/18 Discharge Date: 06/14/18 - History Present History: Alcohol Dependence Additional Comments: 42 years old male admitted on 06/11/18 for alcohol withdrawal stabilization feeling better today wants to go to rehab today coordinated with counselor that [facility] available for him - Physical Exam Results Vital Signs: Vital Signs Temperature 96.2 F L 06/14/18 09:43 Pulse Rate 93 H 06/14/18 09:43 Respiratory Rate 20 06/14/18 09:43 Blood Pressure 112/69 06/14/18 09:43 O2 Sat by Pulse Oximetry (%) Pertinent Admission Physical Exam Findings: alcohol withdrawal sx Laboratory Last Values WBC 5.8 K/mm3 (4.0-10.0) 06/11/18 14:30 RBC 4.46 M/mm3 (4.00-5.60) 06/11/18 14:30 Hgb 13.8 GM/dL (11.7-16.9) 06/11/18 14:30 Hct 40.6 % (35.4-49) 06/11/18 14:30 MCV 91.0 fl (80-96) 06/11/18 14:30 MCH 31.0 pg (25.7-33.7) 06/11/18 14:30 MCHC 34.0 g/dl (32.0-35.9) 06/11/18 14:30 RDW 14.2 % (11.9-15.9) 06/11/18 14:30 Plt Count 191 K/MM3 (134-434) 06/11/18 14:30 MPV 9.8 fl (7.5-11.1) 06/11/18 14:30 Sodium 137 mmol/L (136-145) 06/11/18 14:30 Potassium 4.1 mmol/L (3.5-5.1) 06/11/18 14:30 Chloride 106 mmol/L (98-107) 06/11/18 14:30 Carbon Dioxide 29 mmol/L (21-32) 06/11/18 14:30 Anion Gap 2 MMOL/L (8-16) L 06/11/18 14:30 BUN 23 mg/dL (7-18) H 06/11/18 14:30 Creatinine 1.3 mg/dL (0.55-1.3) 06/11/18 14:30 Creat Clearance w eGFR 59.97 (>60) 06/11/18 14:30 Random Glucose 95 mg/dL (74-106) 06/11/18 14:30 Calcium 8.5 mg/dL (8.5-10.1) 06/11/18 14:30 Total Bilirubin 0.3 mg/dL (0.2-1) 06/11/18 14:30 AST 32 U/L (15-37) 06/11/18 14:30 ALT 30 U/L (13-61) 06/11/18 14:30 Alkaline Phosphatase 65 U/L (45-117) 06/11/18 14:30 Total Protein 6.9 g/dl (6.4-8.2) 06/11/18 14:30 Albumin 3.4 g/dl (3.4-5.0) 06/11/18 14:30 RPR Titer Nonreactive (NONREACTIVE) 06/11/18 14:30 HIV 1&2 Antibody Screen Negative 06/11/18 14:30 HIV P24 Antigen Negative 06/11/18 14:30 lab noted - Treatment Hospital Course: Detox Protocol Followed, Detoxed Safely, Responded well, Discharged Condition Good, Rehab Referral Accepted Patient has Accepted a [facility] Referral to: [facility] - Medication Discharge Medications: Ambulatory Orders Albuterol Sulfate Inhaler - [Ventolin HFA Inhaler -] 2 inh IH Q4H PRN #1 inhaler 04/16/16 Cyclobenzaprine HCl [Flexeril 10 mg] 10 mg PO BID PRN #7 tablet 11/09/16 Glipizide [Glipizide Xl] 2.5 mg PO DAILY 11/09/16 Lisinopril [Zestril] 2.5 mg PO DAILY 11/09/16 Naproxen [Naprosyn -] 500 mg PO BID #14 tablet 11/09/16 metFORMIN HCL [Metformin ER Osmotic] 500 mg PO BID 11/09/16 - Diagnosis (1) Alcohol dependence with uncomplicated withdrawal Current Visit: Yes Status: Acute (2) Nicotine dependence Current Visit: Yes Status: Acute Qualifiers: Nicotine product type: cigarettes Substance use status: in withdrawal Qualified Code(s): F17.213 - Nicotine dependence, cigarettes, with withdrawal (3) Weight loss Current Visit: Yes Status: Acute (4) Asthma Current Visit: Yes Status: Chronic Qualifiers: Asthma severity: mild Asthma persistence: intermittent Asthma complication type: with status asthmaticus Qualified Code(s): J45.22 - Mild intermittent asthma with status asthmaticus (5) Schizophrenia Current Visit: Yes Status: Suspected Qualifiers: Schizophrenia type: unspecified Qualified Code(s): F20.9 - Schizophrenia, unspecified - AMA Did Patient Leave Against Medical Advice: No
[2018-06-14] MEDS ORDERED: chlordiazePOXIDE HCL 10 MG CAPSULE PO SCH (17:00)
== END 2018-06-14 12:59 | disposition other institution (70) | DRG 773 ==
LOC: YASAS 11:59 → Y3N 15:08
PROVIDERS: ADMIT Surgery; ATTEND Surgery
PROC: HZ2ZZZZ Detoxification Services for Substance Abuse Treatment (ICD-10-PCS; principal; 2018-06-11)
DX: F10.230 Alcohol dependence with withdrawal, uncomplicated (principal); F14.20 Cocaine dependence, uncomplicated; F12.20 Cannabis dependence, uncomplicated; F11.10 Opioid abuse, uncomplicated; F17.213 Nicotine dependence, cigarettes, with withdrawal; F19.24 Other psychoactive substance dependence with psychoactive substance-induced mood disorder; F20.9 Schizophrenia, unspecified; F81.9 Developmental disorder of scholastic skills, unspecified; I10 Essential (primary) hypertension; J45.22 Mild intermittent asthma with status asthmaticus; M54.5 Low back pain; R63.4 Abnormal weight loss; Z68.34 Body mass index [BMI] 34.0-34.9, adult; Z91.19 Patient's noncompliance with other medical treatment and regimen
CPT/HCPCS: 36415; 80053; 85027; 86593; 87389; 93005; 93010

== ENCOUNTER 2018-06-14 12:49 | Inpatient (IN) | payer OTHER ==
[2018-06-14] MEDS ORDERED: guaiFENesin 200 MG/10 ML 10 ML UNIT-DOSE CUPS PO PRN (13:24)
[2018-06-14] MEDS ORDERED: NICOTINE 14 MG/24 HOURS TOPICAL PATCH TD PRN (13:24)
[2018-06-14] MEDS ORDERED: LOPERAMIDE HCL 2 MG CAPSULE PO PRN (13:24)
[2018-06-14] MEDS ORDERED: MAGNESIUM HYDROX 2400MG/30ML ORAL SUSPENSION 30 ML CUP PO PRN (13:24)
[2018-06-14] MEDS ORDERED: ACETAMINOPHEN 325 MG TABLET (FP) PO PRN (13:24)
[2018-06-14] MEDS ORDERED: NICOTINE POLACRILEX 2 MG GUM BUC PRN (13:24)
[2018-06-14] MEDS ORDERED: MAGNESIUM CITRATE 300 ML BOTTLE PO PRN (13:24)
[2018-06-14] MEDS ORDERED: P-EPHED 60MG/TRIPROLIDI 2.5MG TABLET PO PRN (13:24)
[2018-06-14] MEDS ORDERED: IBUPROFEN 400 MG TABLET (FP) PO PRN (13:24)
[2018-06-14] MEDS ORDERED: MENTHOL/PHENOL 1 EACH UD MM PRN (13:24)
[2018-06-14] MEDS ORDERED: MAG HYDROX/AL HYDROX/SIMETH 30 ML UNIT-DOSE CUP PO PRN (13:24)
--- NOTE | 2018-06-14 13:24 | HP ---
[facility] Rehab Assess/Revision - Admission History Admitted to Rehab from: [facility] Date of Admission to Rehab: 06/14/18 - Findings Detox History & Physical reviewed: Yes Concur with findings: Yes Comments/Additional Findings: transferred from detox to rehab admission as per protocol Inpatient Rehab Admission - Rehab Decision to Admit Inpatient rehab admission?: Yes - Initial Determination Are CD services needed?: Yes Free of communicable disease: Yes Not in need of hospitalization: Yes - Rehab Admission Criteria Previous failed treatment: Yes Poor recovery environment: Yes Comorbidities: Yes Lacks judgement: No Patient is meeting Inpatient Rehab admission criteria:: Yes
[2018-06-14] MEDS ORDERED: THIAMINE HCL 100 MG TABLET (FP) PO SCH (22:00)
[2018-06-14] MEDS ORDERED: MELATONIN 5 MG TABLETS PO PRN (22:00)
[2018-06-15 08:08] VITALS: BP 106/67; PULSE 72; TEMP 97.4
[2018-06-15] MEDS ORDERED: PRENATAL VITAMINS W/ FOLIC ACID TABLET (FP) PO SCH (10:00)
--- NOTE | 2018-06-15 10:33 | PN ---
[facility] Progress Note Note: PATIENT REQUESTED TO SIGN OUT AMA. PATIENT STATES " I NEED HELP WITH HOUSING NOT REHAB". PATIENT ENCOURAGED TO COMPLETE TREATMENT BUT REFUSED TO STAY IN REHAB. PATIENT EXPLAINED RISK FACTORS OR RELAPSE WITH SIGNING OUT AMA. HOME MEDICATION LIST REVIEWED, PATIENT STATED TO PROVIDER " I TAKE NO HOME MEDS". PATIENT IS MEDICALLY STABLE AND DENIES SI/HI. AMA PROCESS COMPLETED WITH NURSING STAFF. Vital Signs (72 hours) 06/15/18 06/15/18 03:30 08:08 Temperature 97.4 F L Pulse Rate 72 Respiratory 18 18 Rate Blood Pressure 106/67 Laboratory Tests 06/14/18 06/15/18 17:08 06:24 POC Glucometer 113 88
== END 2018-06-15 11:05 | disposition left against medical advice (07) | DRG 770 ==
LOC: YASAS 12:49 → Y3W 12:50
PROVIDERS: ADMIT Neuromusculoskeletal Medicine & OMM; ATTEND Neuromusculoskeletal Medicine & OMM
PROC: HZ42ZZZ Group Counseling for Substance Abuse Treatment, Cognitive-Behavioral (ICD-10-PCS; principal; 2018-06-14)
DX: F10.230 Alcohol dependence with withdrawal, uncomplicated (principal); F14.20 Cocaine dependence, uncomplicated; F12.20 Cannabis dependence, uncomplicated; F17.210 Nicotine dependence, cigarettes, uncomplicated; I10 Essential (primary) hypertension; J45.909 Unspecified asthma, uncomplicated
CPT/HCPCS: 82962

== ENCOUNTER 2022-08-09 10:27 | Inpatient (IN) | payer OTHER ==
[2022-08-09 10:51] VITALS: BMI 24.3
[2022-08-09] MEDS ORDERED: hydrOXYzine PAMOATE 25 MG CAPSULE (FP) PO PRN (12:03)
[2022-08-09] MEDS ORDERED: NICOTINE 10 MG CARTRIDGE (INHALER) IH PRN (12:03)
[2022-08-09] MEDS ORDERED: NALOXONE HCL 0.4 MG/ML VIAL IM PRN (12:03)
[2022-08-09] MEDS ORDERED: POLYETHYLENE GLYCOL (HEALTHYLAX) 3350 17 GM PACKET PO PRN (12:03)
[2022-08-09] MEDS ORDERED: AMMONIUM LACTATE 12% LOTION 225 GM BOTTLE TP PRN (12:03)
[2022-08-09] MEDS ORDERED: NALOXONE HCL (KLOXXADO) 8 MG SPRAY NS PRN (12:03)
[2022-08-09] MEDS ORDERED: BENZONATATE 200 MG CAPSULE PO PRN (12:03)
[2022-08-09] MEDS ORDERED: guaiFENesin 600 MG TABLET.ER (FP) PO PRN (12:03)
[2022-08-09] MEDS ORDERED: IBUPROFEN 400 MG TABLET (FP) PO PRN (12:03)
[2022-08-09] MEDS ORDERED: ACETAMINOPHEN 325 MG TABLET (FP) PO PRN (12:03)
[2022-08-09] MEDS ORDERED: MAGNESIUM HYDROX 2400MG/30ML ORAL SUSPENSION 30 ML CUP PO PRN (12:03)
[2022-08-09] MEDS ORDERED: COLLOIDAL OATMEAL 1 BAR EACH TP PRN (12:03)
[2022-08-09] MEDS ORDERED: IBUPROFEN 600 MG TABLET (FP) PO PRN (12:03)
[2022-08-09] MEDS ORDERED: MAG HYDROX/AL HYDROX/SIMETH 30 ML UNIT-DOSE CUP PO PRN (12:03)
[2022-08-09] MEDS ORDERED: LOPERAMIDE HCL 2 MG CAPSULE PO PRN (12:03)
[2022-08-09] MEDS ORDERED: BENZOCAINE/MENTHOL (CHLORASEPTIC ) LOZENGE MM PRN (12:03)
[2022-08-09] MEDS: NICOTINE 14 MG/24 HOURS TOPICAL PATCH TD SCH (13:25)
[2022-08-09] MEDS: PRENATAL VITAMINS W/ FOLIC ACID TABLET (FP) PO SCH (13:25)
[2022-08-09] MEDS ORDERED: NICOTINE 14 MG/24 HOURS TOPICAL PATCH TD ONE (13:43)
[2022-08-09] MEDS ORDERED: ACETAMINOPHEN 325 MG TABLET (FP) ONE (13:43)
[2022-08-09] MEDS ORDERED: PRENATAL VITAMINS W/ FOLIC ACID TABLET (FP) PO ONE (13:43)
[2022-08-09] MEDS ORDERED: TUBERCULIN PPD 5 TU/0.1ML VIAL ID ONE ×2 (14:08→14:33)
[2022-08-09 14:24] VITALS: RESP 18
[2022-08-09] MEDS ORDERED: ALBUTEROL SO4 HFA INHALER IH PRN (14:25)
[2022-08-09] MEDS ORDERED: CYCLOBENZAPRINE HCL 10 MG TABLET (FP) PO PRN (14:25)
[2022-08-09 18:14] LABS: POTASSIUM 4.1 mmol/L (3.5-5.1)
[2022-08-09 18:20] LABS: BLOOD UREA NITROGEN 32.2 mg/dL (7-18)
[2022-08-09 18:22] LABS: CALCIUM 9.2 mg/dL (8.5-10.1); CREATININE 1.3 mg/dL (0.55-1.3)
[2022-08-09 18:24] LABS: TOT PROT 7.5 g/dl (6.4-8.2)
[2022-08-09 18:30] LABS: BILIRUBIN,TOTAL 0.6 mg/dL (0.2-1)
[2022-08-09 18:33] LABS: HEMATOCRIT 44.6 % (35.4-49); HEMOGLOBIN 15.5 GM/dL (11.7-16.9); MCH 30.6 pg (25.7-33.7); MCHC 34.7 g/dl (32.0-35.9); MEAN CELL VOLUME 88.3 fl (80-96); MEAN PLT VOLUME 9.7 fl (7.5-11.1); PLATELET COUNT 238 10^3/uL (134-434); RBC 5.05 M/mm3 (4.00-5.60); RDW 13.7 % (11.9-15.9); WHITE BLOOD COUNT 5.4 K/mm3 (4.0-10.0)
[2022-08-09 18:49] LABS: SYPHILIS W/ RPR CONF NON-REACTIVE (NONREACTIVE)
[2022-08-09] MEDS: THIAMINE HCL 100 MG TABLET (FP) PO SCH (21:22)
[2022-08-09] MEDS: MELATONIN 5 MG TABLETS PO SCH (21:22)
[2022-08-09] MEDS: NAPROXEN 500 MG TABLET PO SCH (21:23)
[2022-08-10] MEDS ORDERED: ARIPiprazole 5 MG TABLET PO SCH (10:00)
[2022-08-10] MEDS: LISINOPRIL 5 MG TABLET PO SCH (10:44)
[2022-08-10] MEDS: ARIPIPRAZOLE PO SCH (10:45)
[2022-08-10] MEDS: NAPROXEN 500 MG TABLET PO SCH ×2 (10:45→21:11)
[2022-08-10] MEDS: PRENATAL VITAMINS W/ FOLIC ACID TABLET (FP) PO SCH (10:45)
[2022-08-10] MEDS: NICOTINE 14 MG/24 HOURS TOPICAL PATCH TD SCH (10:46)
[2022-08-10 11:26] LABS: URINE APPEARANCE CLEAR; URINE BILIRUBIN NEGATIVE (NEGATIVE); URINE COLOR DK YELLOW; URINE GLUCOSE (UA) NEGATIVE (NEGATIVE); URINE KETONE TRACE (NEGATIVE); URINE LEUK ESTERASE NEGATIVE (NEGATIVE); URINE NITRITE NEGATIVE (NEGATIVE); URINE PROTEIN TRACE (NEGATIVE)
[2022-08-10 16:53] LABS: HIV INTERPRETATION NEGATIVE (NEGATIVE)
[2022-08-10] MEDS: THIAMINE HCL 100 MG TABLET (FP) PO SCH (21:11)
[2022-08-10] MEDS: MELATONIN 5 MG TABLETS PO SCH (21:11)
[2022-08-11] MEDS: NAPROXEN 500 MG TABLET PO SCH ×2 (09:50→21:17)
[2022-08-11] MEDS: ARIPIPRAZOLE PO SCH (09:50)
[2022-08-11] MEDS: PRENATAL VITAMINS W/ FOLIC ACID TABLET (FP) PO SCH (09:50)
[2022-08-11] MEDS: NICOTINE 14 MG/24 HOURS TOPICAL PATCH TD SCH (09:51)
[2022-08-11] MEDS: LISINOPRIL 5 MG TABLET PO SCH (09:53)
[2022-08-11] MEDS: MELATONIN 5 MG TABLETS PO SCH (21:17)
[2022-08-11] MEDS: THIAMINE HCL 100 MG TABLET (FP) PO SCH (21:17)
[2022-08-12 07:39] VITALS: TEMP 96
[2022-08-12] MEDS: PRENATAL VITAMINS W/ FOLIC ACID TABLET (FP) PO SCH (09:44)
[2022-08-12] MEDS: NICOTINE 14 MG/24 HOURS TOPICAL PATCH TD SCH (09:44)
[2022-08-12] MEDS: ARIPIPRAZOLE PO SCH (09:45)
[2022-08-12] MEDS: NAPROXEN 500 MG TABLET PO SCH (09:45)
[2022-08-12] MEDS: LISINOPRIL 5 MG TABLET PO SCH (09:45)
[2022-08-12 10:40] VITALS: BP 113/67; PULSE 79
[2022-08-12] MEDS ORDERED: PNEUMOC 20-VAL CONJ-DIP CRM/PF 0.5 ML SYRINGE IM ONE (12:00)
== END 2022-08-12 12:24 | disposition left against medical advice (07) | DRG 770 ==
LOC: YASAS 10:27 → Y3W 12:42 → Y3E 13:36 → Y3W 13:39
PROVIDERS: ADMIT Allergy & Immunology; ATTEND Psychiatry & Neurology Pain Medicine
PROC: HZ42ZZZ Group Counseling for Substance Abuse Treatment, Cognitive-Behavioral (ICD-10-PCS; principal; 2022-08-09)
DX: F10.20 Alcohol dependence, uncomplicated (principal); F14.20 Cocaine dependence, uncomplicated; F17.210 Nicotine dependence, cigarettes, uncomplicated; F31.9 Bipolar disorder, unspecified; F20.9 Schizophrenia, unspecified; F79 Unspecified intellectual disabilities; I10 Essential (primary) hypertension; R79.89 Other specified abnormal findings of blood chemistry; Z59.01 Sheltered homelessness
CPT/HCPCS: 36415; 71046-TC-FY; 80053; 81003; 82140; 82962; 85027; 86780; 86803; 87389; 87635

== ENCOUNTER 2022-11-09 13:26 | Inpatient (IN) | payer OTHER ==
[2022-11-09 14:04] VITALS: BMI 24.0
[2022-11-09] MEDS ORDERED: IBUPROFEN 600 MG TABLET (FP) PO PRN (14:44)
[2022-11-09] MEDS ORDERED: LOPERAMIDE HCL 2 MG CAPSULE PO PRN (14:44)
[2022-11-09] MEDS ORDERED: guaiFENesin 600 MG TABLET.ER (FP) PO PRN (14:44)
[2022-11-09] MEDS ORDERED: BISMUTH SUBSALICYLATE 524 MG/30 ML PO PRN (14:44)
[2022-11-09] MEDS ORDERED: NICOTINE POLACRILEX 2 MG GUM BUC PRN (14:44)
[2022-11-09] MEDS ORDERED: ACETAMINOPHEN 325 MG TABLET (FP) PO PRN (14:44)
[2022-11-09] MEDS ORDERED: ONDANSETRON *ODT* 4 MG TABLET SL PRN (14:44)
[2022-11-09] MEDS ORDERED: BENZOCAINE/MENTHOL (CHLORASEPTIC ) LOZENGE MM PRN (14:44)
[2022-11-09] MEDS ORDERED: MAG HYDROX/AL HYDROX/SIMETH 30 ML UNIT-DOSE CUP PO PRN (14:44)
[2022-11-09] MEDS ORDERED: POLYETHYLENE GLYCOL (HEALTHYLAX) 3350 17 GM PACKET PO PRN (14:44)
[2022-11-09] MEDS ORDERED: IBUPROFEN 400 MG TABLET (FP) PO PRN (14:44)
[2022-11-09] MEDS ORDERED: DICYCLOMINE HCL 10 MG CAPSULE PO PRN (14:44)
[2022-11-09] MEDS ORDERED: MAGNESIUM HYDROX 2400MG/30ML ORAL SUSPENSION 30 ML CUP PO PRN (14:44)
[2022-11-09] MEDS ORDERED: BENZONATATE 200 MG CAPSULE PO PRN (14:44)
[2022-11-09] MEDS: METHOCARBAMOL 500 MG TABLET PO PRN (17:15)
[2022-11-09] MEDS: THIAMINE HCL 100 MG TABLET (FP) PO SCH (22:38)
[2022-11-09] MEDS: MELATONIN 5 MG TABLETS PO SCH (22:46)
[2022-11-10] MEDS ORDERED: ALBUTEROL SO4 HFA INHALER IH PRN (09:20)
[2022-11-10] MEDS ORDERED: chlordiazePOXIDE HCL 25 MG CAPSULE PO PRN (09:21)
[2022-11-10] MEDS ORDERED: ARIPiprazole 5 MG TABLET PO SCH ×2 (10:00)
[2022-11-10] MEDS: hydrOXYzine PAMOATE 25 MG CAPSULE (FP) PO PRN ×2 (10:42→22:34)
[2022-11-10] MEDS: METHOCARBAMOL 500 MG TABLET PO PRN ×2 (10:42→22:34)
[2022-11-10] MEDS: PRENATAL VITAMINS W/ FOLIC ACID TABLET (FP) PO SCH (10:42)
[2022-11-10] MEDS: ARIPIPRAZOLE 5 MG, ARIPIPRAZOLE 2 MG PO SCH (10:43)
[2022-11-10] MEDS: chlordiazePOXIDE HCL 25 MG CAPSULE PO SCH ×3 (10:44→22:34)
[2022-11-10] MEDS: LISINOPRIL 5 MG TABLET PO SCH (10:44)
[2022-11-10 11:00] LABS: HEMATOCRIT 38.7 % (35.4-49); HEMOGLOBIN 13.5 GM/dL (11.7-16.9); MCH 31.4 pg (25.7-33.7); MCHC 34.9 g/dl (32.0-35.9); MEAN CELL VOLUME 89.7 fl (80-96); MEAN PLT VOLUME 9.7 fl (7.5-11.1); PLATELET COUNT 181 10^3/uL (134-434); RBC 4.31 M/mm3 (4.00-5.60); RDW 14.6 % (11.9-15.9); WHITE BLOOD COUNT 4.3 K/mm3 (4.0-10.0)
[2022-11-10 11:27] LABS: POTASSIUM 4.1 mmol/L (3.5-5.1)
[2022-11-10 11:34] LABS: BLOOD UREA NITROGEN 14.8 mg/dL (7-18)
[2022-11-10 11:36] LABS: ALBUMIN 3.2 g/dl (3.4-5.0); BILIRUBIN,TOTAL 0.4 mg/dL (0.2-1)
[2022-11-10] MEDS: MELATONIN 5 MG TABLETS PO SCH (22:33)
[2022-11-10] MEDS: THIAMINE HCL 100 MG TABLET (FP) PO SCH (22:33)
[2022-11-11] MEDS: chlordiazePOXIDE HCL 25 MG CAPSULE PO SCH ×4 (05:58→23:05)
[2022-11-11] MEDS: LISINOPRIL 5 MG TABLET PO SCH (10:59)
[2022-11-11] MEDS: PRENATAL VITAMINS W/ FOLIC ACID TABLET (FP) PO SCH (10:59)
[2022-11-11] MEDS: ARIPIPRAZOLE 5 MG, ARIPIPRAZOLE 2 MG PO SCH (10:59)
[2022-11-11] MEDS: MELATONIN 5 MG TABLETS PO SCH (23:04)
[2022-11-11] MEDS: THIAMINE HCL 100 MG TABLET (FP) PO SCH (23:04)
[2022-11-11] MEDS: METHOCARBAMOL 500 MG TABLET PO PRN (23:04)
[2022-11-12] MEDS ORDERED: chlordiazePOXIDE HCL 25 MG CAPSULE PO SCH (05:00)
[2022-11-12 10:00] VITALS: BP 140/66; PULSE 103; RESP 18; TEMP 98
[2022-11-12] MEDS: LISINOPRIL 5 MG TABLET PO SCH (11:47)
[2022-11-12] MEDS: PRENATAL VITAMINS W/ FOLIC ACID TABLET (FP) PO SCH (11:47)
[2022-11-12] MEDS: ARIPIPRAZOLE 5 MG, ARIPIPRAZOLE 2 MG PO SCH (11:47)
[2022-11-13] MEDS ORDERED: chlordiazePOXIDE HCL 10 MG CAPSULE PO PRN
[2022-11-13] MEDS ORDERED: chlordiazePOXIDE HCL 10 MG CAPSULE PO SCH (05:00)
[2022-11-14] MEDS ORDERED: chlordiazePOXIDE HCL 10 MG CAPSULE PO SCH (05:00)
[2022-11-15] MEDS ORDERED: chlordiazePOXIDE HCL 10 MG CAPSULE PO ONE (05:00)
== END 2022-11-12 12:06 | disposition home or self-care (01) | DRG 774 ==
LOC: YASAS 13:26 → Y6N 16:41
PROVIDERS: ADMIT Allergy & Immunology; ATTEND Surgery
PROC: HZ2ZZZZ Detoxification Services for Substance Abuse Treatment (ICD-10-PCS; principal; 2022-11-09)
DX: F10.230 Alcohol dependence with withdrawal, uncomplicated (principal); F14.20 Cocaine dependence, uncomplicated; F17.210 Nicotine dependence, cigarettes, uncomplicated; F19.282 Other psychoactive substance dependence with psychoactive substance-induced sleep disorder; F31.9 Bipolar disorder, unspecified; U07.1 COVID-19; I10 Essential (primary) hypertension; J45.909 Unspecified asthma, uncomplicated
CPT/HCPCS: 36415; 80053; 85027; 86780; 87635

== ENCOUNTER 2023-12-22 14:07 | Inpatient (IN) | payer OTHER ==
[2023-12-22 16:49] VITALS: BMI 26.4
[2023-12-22] MEDS ORDERED: MAGNESIUM HYDROX 2400MG/30ML ORAL SUSPENSION 30 ML CUP PO PRN (17:45)
[2023-12-22] MEDS ORDERED: BENZONATATE 200 MG CAPSULE PO PRN (17:45)
[2023-12-22] MEDS ORDERED: NICOTINE POLACRILEX 2 MG LOZENGE BC PRN (17:45)
[2023-12-22] MEDS ORDERED: MAG HYDROX/AL HYDROX/SIMETH 30 ML UNIT-DOSE CUP PO PRN (17:45)
[2023-12-22] MEDS ORDERED: BISMUTH SUBSALICYLATE 524 MG/30 ML PO PRN (17:45)
[2023-12-22] MEDS ORDERED: ACETAMINOPHEN 325 MG TABLET (FP) PO PRN (17:45)
[2023-12-22] MEDS ORDERED: DICYCLOMINE HCL 10 MG CAPSULE PO PRN (17:45)
[2023-12-22] MEDS ORDERED: guaiFENesin 600 MG TABLET.ER (FP) PO PRN (17:45)
[2023-12-22] MEDS ORDERED: NICOTINE POLACRILEX 2 MG GUM BUC PRN (17:45)
[2023-12-22] MEDS ORDERED: ONDANSETRON *ODT* 4 MG TABLET SL PRN (17:45)
[2023-12-22] MEDS ORDERED: IBUPROFEN 400 MG TABLET (FP) PO PRN (17:45)
[2023-12-22] MEDS ORDERED: BENZOCAINE/MENTHOL (CHLORASEPTIC ) LOZENGE MM PRN (17:45)
[2023-12-22] MEDS ORDERED: POLYETHYLENE GLYCOL (HEALTHYLAX) 3350 17 GM PACKET PO PRN (17:45)
[2023-12-22] MEDS ORDERED: LOPERAMIDE HCL 2 MG CAPSULE PO PRN (17:45)
[2023-12-22] MEDS ORDERED: ALBUTEROL SO4 HFA INHALER IH PRN (19:40)
[2023-12-22] MEDS: METHOCARBAMOL 500 MG TABLET PO PRN (20:00)
[2023-12-22] MEDS: hydrOXYzine PAMOATE 25 MG CAPSULE (FP) PO PRN (20:00)
[2023-12-22] MEDS: THIAMINE 100 MG TABLET PO SCH (21:57)
[2023-12-22] MEDS: MELATONIN 5 MG TABLETS PO SCH (21:57)
[2023-12-23] MEDS ORDERED: chlordiazePOXIDE HCL 25 MG CAPSULE PO SCH ×3 (05:00→23:00)
[2023-12-23 09:25] LABS: POTASSIUM 4.2 mmol/L (3.5-5.1)
[2023-12-23 09:29] LABS: CALCIUM 8.9 mg/dL (8.5-10.1)
[2023-12-23 09:30] LABS: ALBUMIN 3.3 g/dl (3.4-5.0); BLOOD UREA NITROGEN 14.3 mg/dL (7-18)
[2023-12-23 09:33] LABS: CREATININE 1.1 mg/dL (0.55-1.3)
[2023-12-23 09:35] LABS: BILIRUBIN,TOTAL 0.5 mg/dL (0.2-1); TOT PROT 6.3 g/dl (6.4-8.2)
[2023-12-23 09:36] LABS: HEMATOCRIT 41.7 % (35.4-49); HEMOGLOBIN 14.2 GM/dL (11.7-16.9); MCH 30.7 pg (25.7-33.7); MCHC 33.9 g/dl (32.0-35.9); MEAN CELL VOLUME 90.4 fl (80-96); MEAN PLT VOLUME 9.6 fl (7.5-11.1); PLATELET COUNT 188 10^3/uL (134-434); RBC 4.62 M/mm3 (4.00-5.60); RDW 13.4 % (11.9-15.9); WHITE BLOOD COUNT 5.8 K/mm3 (4.0-10.0)
[2023-12-23] MEDS: PRENATAL VITAMINS W/ FOLIC ACID TABLET (FP) PO SCH (10:37)
[2023-12-23] MEDS ORDERED: chlordiazePOXIDE HCL 25 MG CAPSULE PO PRN ×4 (11:42)
[2023-12-23] MEDS: chlordiazePOXIDE HCL 25 MG CAPSULE PO ONE (12:29)
[2023-12-23] MEDS: chlordiazePOXIDE HCL 25 MG CAPSULE PO SCH (17:25)
[2023-12-23] MEDS: IBUPROFEN 600 MG TABLET (FP) PO PRN (22:42)
[2023-12-24] MEDS ORDERED: chlordiazePOXIDE HCL 25 MG CAPSULE PO SCH (05:00)
[2023-12-25] MEDS ORDERED: chlordiazePOXIDE HCL 10 MG CAPSULE PO PRN
[2023-12-25] MEDS ORDERED: chlordiazePOXIDE HCL 10 MG CAPSULE PO SCH (05:00)
[2023-12-25] MEDS: chlordiazePOXIDE HCL 25 MG CAPSULE PO SCH (05:35)
[2023-12-26] MEDS ORDERED: chlordiazePOXIDE HCL 10 MG CAPSULE PO PRN ×3
[2023-12-26] MEDS ORDERED: chlordiazePOXIDE HCL 10 MG CAPSULE PO SCH (05:00)
[2023-12-26] MEDS: chlordiazePOXIDE HCL 10 MG CAPSULE PO SCH (05:38)
[2023-12-26] MEDS: NALTREXONE HCL 50 MG TABLET PO ONE (13:21)
[2023-12-27] MEDS ORDERED: chlordiazePOXIDE HCL 10 MG CAPSULE PO ONE (05:00)
[2023-12-27] MEDS ORDERED: chlordiazePOXIDE HCL 10 MG CAPSULE PO SCH ×2 (05:00)
[2023-12-27] MEDS: chlordiazePOXIDE HCL 10 MG CAPSULE PO SCH (05:35)
[2023-12-27 08:35] VITALS: BP 115/66; PULSE 69; RESP 18; TEMP 97.6
[2023-12-27] MEDS: NALOXONE (NYS OPIOID OVERDOSE PROGRAM) 4 MG/0.1 ML SPRAY NS ONE (09:00)
[2023-12-27] MEDS: NALTREXONE HCL 50 MG TABLET PO SCH (09:39)
[2023-12-28] MEDS ORDERED: chlordiazePOXIDE HCL 10 MG CAPSULE PO ONE ×3 (05:00)
== END 2023-12-27 09:54 | disposition home or self-care (01) | DRG 774 ==
LOC: YASAS 14:07 → Y6N 19:02
PROVIDERS: ADMIT Allergy & Immunology; ATTEND Surgery
PROC: HZ2ZZZZ Detoxification Services for Substance Abuse Treatment (ICD-10-PCS; principal; 2023-12-22)
DX: F10.230 Alcohol dependence with withdrawal, uncomplicated (principal); F14.20 Cocaine dependence, uncomplicated; F17.210 Nicotine dependence, cigarettes, uncomplicated; F20.9 Schizophrenia, unspecified; I10 Essential (primary) hypertension; J45.909 Unspecified asthma, uncomplicated; Z59.00 Homelessness unspecified
CPT/HCPCS: 36415; 80053; 80305; 85027; 86780

== ENCOUNTER 2024-06-03 14:03 | Inpatient (IN) | payer OTHER ==
[2024-06-03] MEDS ORDERED: LOPERAMIDE HCL 2 MG CAPSULE PO PRN (14:28)
[2024-06-03] MEDS ORDERED: DICYCLOMINE HCL 10 MG CAPSULE PO PRN (14:28)
[2024-06-03] MEDS ORDERED: hydrOXYzine PAMOATE 25 MG CAPSULE (FP) PO PRN (14:28)
[2024-06-03] MEDS ORDERED: ACETAMINOPHEN 325 MG TABLET (FP) PO PRN (14:28)
[2024-06-03] MEDS ORDERED: POLYETHYLENE GLYCOL (HEALTHYLAX) 3350 17 GM PACKET PO PRN (14:28)
[2024-06-03] MEDS ORDERED: MAG HYDROX/AL HYDROX/SIMETH 30 ML UNIT-DOSE CUP PO PRN (14:28)
[2024-06-03] MEDS ORDERED: BENZOCAINE/MENTHOL (CHLORASEPTIC ) LOZENGE MM PRN (14:28)
[2024-06-03] MEDS ORDERED: NALOXONE (NARCAN) HCL 4 MG/0.1 ML SPRAY NS PRN (14:28)
[2024-06-03] MEDS ORDERED: BISMUTH SUBSALICYLATE 524 MG/30 ML PO PRN (14:28)
[2024-06-03] MEDS ORDERED: ONDANSETRON *ODT* 4 MG TABLET SL PRN (14:28)
[2024-06-03] MEDS ORDERED: guaiFENesin 600 MG TABLET.ER (FP) PO PRN (14:28)
[2024-06-03] MEDS ORDERED: BENZONATATE 200 MG CAPSULE PO PRN (14:28)
[2024-06-03] MEDS ORDERED: MAGNESIUM HYDROX 2400MG/30ML ORAL SUSPENSION 30 ML CUP PO PRN (14:28)
[2024-06-03] MEDS ORDERED: IBUPROFEN 400 MG TABLET (FP) PO PRN (14:28)
[2024-06-03] MEDS ORDERED: NICOTINE POLACRILEX 2 MG GUM BUC PRN (14:28)
[2024-06-03] MEDS ORDERED: ALBUTEROL SO4 HFA INHALER IH PRN (14:30)
[2024-06-03 14:39] VITALS: BMI 27.4
[2024-06-03] MEDS: chlordiazePOXIDE HCL 25 MG CAPSULE PO PRN (19:05)
[2024-06-03] MEDS ORDERED: PNEUMOC 20-VAL CONJ-DIP CRM/PF 0.5 ML SYRINGE IM ONE (20:30)
[2024-06-03] MEDS: chlordiazePOXIDE HCL 25 MG CAPSULE PO SCH (22:35)
[2024-06-03] MEDS: THIAMINE 100 MG TABLET PO SCH (22:35)
[2024-06-03] MEDS: MIRTAZAPINE 15 MG TABLET (FP) PO SCH (22:35)
[2024-06-03] MEDS: MELATONIN 5 MG TABLETS PO SCH (22:36)
[2024-06-04] MEDS: PRENATAL VITAMINS W/ FOLIC ACID TABLET (FP) PO SCH (10:25)
[2024-06-04] MEDS: NALTREXONE HCL 50 MG TABLET PO SCH (10:25)
[2024-06-04] MEDS: LISINOPRIL 5 MG TABLET PO SCH (10:25)
[2024-06-04] MEDS: PNEUMOC 20-VAL CONJ-DIP CRM/PF 0.5 ML SYRINGE IM ONE (12:16)
[2024-06-04 12:25] LABS: HEMATOCRIT 42.5 % (40.1-51.0); HEMOGLOBIN 13.7 g/dL (13.7-17.5); MCHC 32.2 g/dl (32.3-36.5); MEAN CELL VOLUME 92.4 fl (79.0-92.2); PLATELET COUNT 249 x10^3/uL (163-337); POTASSIUM 4.7 mmol/L (3.5-5.1); RDW 12.5 % (12.1-15.9)
[2024-06-04 12:33] LABS: ALBUMIN 3.9 g/dl (3.4-5.0); BLOOD UREA NITROGEN 26.1 mg/dL (7-18); CALCIUM 9.1 mg/dL (8.5-10.1)
[2024-06-04 12:36] LABS: CREATININE 1.3 mg/dL (0.55-1.3)
[2024-06-04 12:37] LABS: BILIRUBIN,TOTAL 0.4 mg/dL (0.2-1)
[2024-06-04 12:38] LABS: TOT PROT 7.2 g/dl (6.4-8.2)
[2024-06-04] MEDS: chlordiazePOXIDE HCL 25 MG CAPSULE PO SCH (14:11)
[2024-06-04 18:55] LABS: HCV DIAGNOSTIC IN-HOUSE W/RFLX NON-REACTIVE (NONREACTIVE); HIV INTERPRETATION NEGATIVE (NEGATIVE)
[2024-06-04] MEDS: METHOCARBAMOL 500 MG TABLET PO PRN (22:52)
[2024-06-04] MEDS: IBUPROFEN 600 MG TABLET (FP) PO PRN (22:52)
[2024-06-05] MEDS ORDERED: chlordiazePOXIDE HCL 25 MG CAPSULE PO SCH (05:00)
[2024-06-06] MEDS ORDERED: chlordiazePOXIDE HCL 10 MG CAPSULE PO PRN
[2024-06-06] MEDS: chlordiazePOXIDE HCL 10 MG CAPSULE PO SCH (06:14)
[2024-06-07] MEDS: chlordiazePOXIDE HCL 10 MG CAPSULE PO SCH (05:33)
[2024-06-08] MEDS: chlordiazePOXIDE HCL 10 MG CAPSULE PO ONE (05:41)
[2024-06-08 08:43] VITALS: BP 107/73; PULSE 90; RESP 18; TEMP 98
== END 2024-06-08 10:33 | disposition home or self-care (01) | DRG 774 ==
LOC: YASAS 14:03 → Y6N 16:34
PROVIDERS: ADMIT Allergy & Immunology; ATTEND Allergy & Immunology
PROC: HZ2ZZZZ Detoxification Services for Substance Abuse Treatment (ICD-10-PCS; principal; 2024-06-03)
DX: F10.230 Alcohol dependence with withdrawal, uncomplicated (principal); F25.0 Schizoaffective disorder, bipolar type; F17.210 Nicotine dependence, cigarettes, uncomplicated; F14.20 Cocaine dependence, uncomplicated; F19.282 Other psychoactive substance dependence with psychoactive substance-induced sleep disorder; F19.24 Other psychoactive substance dependence with psychoactive substance-induced mood disorder; I10 Essential (primary) hypertension; J45.909 Unspecified asthma, uncomplicated
CPT/HCPCS: 36415; 80053; 80305; 80307; 85027; 86780; 86803; 87389; 90677; 93005; 93010